=== PATIENT | female | born 1960 | race Caucasian/White ===

== ENCOUNTER 2018-04-29 16:00 | Inpatient (IN) | END 2018-05-14 11:05 | disposition home or self-care (01) | DRG 885 | DX: F25.9 Schizoaffective disorder, unspecified (principal); K50.90 Crohn's disease, unspecified, without complications; E44.0 Moderate protein-calorie malnutrition; Z68.1 Body mass index [BMI] 19.9 or less, adult; E87.1 Hypo-osmolality and hyponatremia; N13.30 Unspecified hydronephrosis; M81.0 Age-related osteoporosis without current pathological fracture; E03.9 Hypothyroidism, unspecified; D63.8 Anemia in other chronic diseases classified elsewhere; E86.0 Dehydration; E78.00 Pure hypercholesterolemia, unspecified; R74.0 Nonspecific elevation of levels of transaminase and lactic acid dehydrogenase [LDH]; K59.00 Constipation, unspecified; F32.9 Major depressive disorder, single episode, unspecified ==

== ENCOUNTER 2018-10-24 14:10 | Inpatient (IN) | payer MEDICARE ==
[~2018-10-24] VITALS: Ht 157.5 cm; Wt 62.6 kg
[~2018-10-24 14:10] MED LIST: CALC-860 PO; CLOT12CR TP; CLOZ100T PO; CYAN-51 PO; DICY10CA13 PO; DIVA250T4 PO; LEVO125T PO; OLAN2.5T3 PO
[2018-10-24 15:24] LABS: BASOPHILS # (AUTO) 0.1 K/uL (0.0-8.0); BASOPHILS % (AUTO) 1.1 % (0.0-2.0); HEMATOCRIT 27.8 % (31.2-41.9); HEMOGLOBIN 8.9 g/dL (10.9-14.3); LYMPHOCYTES # (AUTO) 1.7 K/uL (20.0-40.0); LYMPHOCYTES % (AUTO) 32.1 % (20.5-51.5); MEAN CORPUSCULAR HEMOGLOBIN 30.1 uug (24.7-32.8); MEAN CORPUSCULAR HGB CONC 32 g/dL (32.3-35.6); MEAN CORPUSCULAR VOLUME 93.6 fL (75.5-95.3); MONOCYTES # (AUTO) 1.1 K/uL (2.0-10.0); MONOCYTES % (AUTO) 20.6 % (0.0-11.0); NEUTROPHILS # (AUTO) 2.5 K/uL (1.8-8.9); NEUTROPHILS % (AUTO) 46.2 % (38.5-71.5); PLATELET COUNT (AUTO) 402 K/uL (179-408); RED BLOOD CELL COUNT(AUTO) 2.97 MIL/uL (3.63-4.92); WHITE BLOOD COUNT (AUTO) 5.3 K/uL (3.8-11.8)
[2018-10-24 15:34] LABS: CARBON DIOXIDE 29 mmol/L (21-32); CHLORIDE 102 mmol/L (98-107); CREATININE 0.4 mg/dL (0.6-1.3); GLUCOSE 75 mg/dL (74-106); POTASSIUM 5.1 mmol/L (3.5-5.1); UREA NITROGEN, BLOOD 18 mg/dL (7-18)
[2018-10-24 15:39] LABS: ALANINE AMINOTRANSFERASE 82 U/L (14-59); ALKALINE PHOSPHATASE 82 U/L (50-136); ASPARTATE AMINOTRANSFERASE 56 U/L (15-37); BILIRUBIN,DIRECT 0.1 mg/dL (0.0-0.2); BILIRUBIN,TOTAL 0.2 mg/dL (0.2-1.0); LIPASE 106 U/L (73-393); TOTAL PROTEIN, SERUM 5.5 g/dL (6.4-8.2)
[2018-10-24 15:52] LABS: *BILIRUBIN,URIN NEGATIVE (NEGATIVE); *BLOOD, URINE 1+ (NEGATIVE); *CLARITY,URINE SLIGHTLY CLOUDY (CLEAR); *COLOR,URINE LIGHT YELLOW (YELLOW); *KETONES,URINE NEGATIVE (NEGATIVE); *UROBILINOGEN,URINE 0.2 E.U./dl (NORMAL); LEUKOCYTE ESTERASE ,URINE 3+ (NEGATIVE); NITRITE, URINE NEGATIVE (NEGATIVE); UGLUCOSE NEGATIVE (NEGATIVE)
[2018-10-24 16:16] LABS: BACTERIA,URINE MODERATE /HPF (NONE SEEN); SQUAMOUS EPITHELIAL CELL,UR FEW /HPF (NONE SEEN); WBC,URINE 80-100 /HPF (0-3)
[2018-10-24 16:28] LABS: LYMPHOCYTES % (MANUAL) 31 % (20-40); MONOCYTES % (MANUAL) 13 % (2-10); NEUTROPHILS % (MANUAL) 56 % (42-75)
--- NOTE | 2018-10-24 16:38 | NUR ---
[facility] PROVIDED FOR PT PER REQUEST. PT ATE WITH GOOD APETITTE.DENEIS N/V
--- NOTE | 2018-10-24 16:57 | NUR ---
CALLED [facility] .FOR PSYCH EVAL. ETA ONE HOUR
[2018-10-24] MEDS ORDERED: CEphaleXIN 500 MG CAPSULE ONE (16:59)
[2018-10-24] MEDS ORDERED: CEphaleXIN 500 MG CAPSULE PO ONE (17:00)
--- NOTE | 2018-10-24 18:24 | NUR ---
HOSPITAL DINNER PROVIDED FOR PT. PT EATING WITH GOOD APETITE.
--- NOTE | 2018-10-24 20:37 | NUR ---
Nursing show operations supervisor contacted for update with patient room. She stated that they are in the process of moving patients out of GP to make room for this patient.
[2018-10-24] MEDS ORDERED: MAGNESIUM HYDROXIDE 30 ML LIQUID UDC PO PRN (21:00)
[2018-10-24] MEDS ORDERED: LORAZEPAM 1 MG TABLET PO PRN (21:00)
[2018-10-24] MEDS ORDERED: TEMAZEPAM 7.5 MG CAPSULE PO PRN (21:00)
--- NOTE | 2018-10-24 21:00 | NUR ---
Patient transferred to MHU in stable condition.
[2018-10-24] MEDS: ACETAMINOPHEN 325 MG TABLET PO PRN (22:59)
--- NOTE | 2018-10-24 23:31 | NUR ---
Admission Note: 57 y.o. female brought to MHU from ER via wheelchair, accompanied by ER staff. Pt admitted on a 5150 for GD under the care of Dr Mendoza and Dr Antoine. According to the 5150, Pt called 911 reporting an argument with her mother and stated she does not want to live with her mother any longer. She has always lived with her mother and takes Clozapine. Pt was angry, irritable, and had pressured speech. Pt has no reasonable plan for self care if discharged. Pt is child-like, angry, and unsafe for discharge. Upon admission to the unit, Pt is A+Ox3, VS stable, no c/o pain. Advisement and Patient rights handbook given and explained to Pt. Upon face to face evaluation, Pt is loud, yelling, needy, demanding, agitated, and labile, requires firm limits. Pt exhibits poor insight and impaired judgment. Refuses prn, states repeatedly, I'm not crazy!" Pt states she is here "because that's where my mother wants me!" Pt is angry, irritable and resistant to staff direction. Pt only answered select questions, and refused to sign restraint policy despite education provided. Skin assessment completed with licensed staff-skin c/d/i. Medical h/o Chron's disease, hypothyroidism, MDD, OP, SAD, and UTI, with NKA. Dr Mendoza and Dr Antoine notified of admission, meds reconciled, orders received. Pt belongings inventoried, contraband placed in unit locker. Refused PNA vaccination. Pt provided contact info for sister in law to be notified in the morning per pt request. Pt refused unit orientation, remains uncooperative. Pt ambulates with slow and steady gait. Q 15 minute safety checks initiated.
[2018-10-24 23:36] VITALS: BP 93/55
--- NOTE | 2018-10-25 06:31 | NUR ---
PATIENT DID NOT SLEEP LAST NIGHT; HOWEVER, SHE STAY IN HER BED AND ONLY CAME OUT OF THE ROOM A FEW TIMES ASKING FOR BLANKETS, TOILET PAPER, FOOD. PO PRNs FOR INSOMNIA AND ANXIETY, BUT SHE REFUSED. PATIENT IS REASSURED FOR HER SAFETY. WILL CONTINUE TO MONITOR.
[2018-10-25 07:30] VITALS: BP 95/61
[2018-10-25 15:57] VITALS: BP 103/60
[2018-10-25] MEDS: CLOZAPINE 100 MG TABLET PO SCH (17:31)
[2018-10-25] MEDS: DIVALPROEX 250 MG TABLET.DR PO SCH ×2 (17:32→20:24)
--- NOTE | 2018-10-25 19:20 | NUR ---
RECEIVED PT AWAKE ON BED. PT SHOWS NO SIGNS O ACUTE DISTRESS. PLEASANT WHEN APPROACH. SAFETY AND COMFORT PROVIDED. WILL CONTINUE TO MONITOR.
[2018-10-25 20:18] VITALS: BP 94/60
[2018-10-25] MEDS: OLANZAPINE 2.5 MG TABLET PO SCH (20:24)
[2018-10-25] MEDS: CEphaleXIN 500 MG CAPSULE PO SCH (20:24)
[2018-10-25] MEDS: ACETAMINOPHEN 325 MG TABLET PO PRN (20:26)
[2018-10-26] MEDS: LEVOTHYROXINE SODIUM 125 MCG TABLET PO SCH (06:02)
--- NOTE | 2018-10-26 06:53 | NUR ---
PT SLEPT 9 HOURS. PT SHOWS NO SIGNS OF ACUTE DISTRESS. SAFETY AND COMFORT PROVIDED. WILL ENDORSE ACCORDINGLY TO INCOMING NURSE FOR CONTINUITY OF CARE.
[2018-10-26 07:30] VITALS: BP 90/50
[2018-10-26] MEDS: CEphaleXIN 500 MG CAPSULE PO SCH ×2 (08:58→20:33)
[2018-10-26] MEDS: OLANZAPINE 2.5 MG TABLET PO SCH ×2 (08:58→20:33)
[2018-10-26] MEDS: DIVALPROEX 250 MG TABLET.DR PO SCH ×3 (08:58→20:33)
[2018-10-26] MEDS: CYANOCOBALAMIN 1,000 MCG TABLET PO SCH (08:59)
[2018-10-26] MEDS: CITALOPRAM 10 MG TABLET PO SCH (08:59)
[2018-10-26] MEDS: CLOZAPINE 100 MG TABLET PO SCH ×2 (08:59→17:08)
[2018-10-26] MEDS: CALCIUM CARB/VITAMIN D 600-400 MG TABLET PO SCH (08:59)
[2018-10-26] MEDS: DICYCLOMINE HCL 10 MG CAPSULE PO SCH (08:59)
--- NOTE | 2018-10-26 10:44 | NUR ---
Patient care will be endorse to MARCO ANTONIO Candelario who will continue with care plan.
[2018-10-26] MEDS ORDERED: HYDROCODONE/APAP 5-325MG TABLET PO PRN (11:45)
--- NOTE | 2018-10-26 14:17 | NUR ---
Initial Discharge Note: Patient is a 57 year old female who currently lives at home [[address] [place] [address]; ] with her 95 year old mother, Renetta. Per patient, she is unsure at this time if she would like to go home with her mom as she states she is "manipulative". Per Renetta, she wants her daughter to come home stating "She is all I have" and became tearful. The relationship between the two appears to be co-dependent. sanitation worker hosing machinery will continue to work with both patient and daughter toward a safe discharge with adequate support. sanitation worker hosing machinery will continue to collaborate with interdisciplinary team on discharge as well.
[2018-10-26 16:07] VITALS: BP 90/45
[2018-10-26] MEDS: ACETAMINOPHEN 325 MG TABLET PO PRN (17:07)
[2018-10-26 20:10] VITALS: BP 91/51
--- NOTE | 2018-10-26 21:41 | NUR ---
GPS: Rec'd pt awake walking in the hallway with her FWW. No s/s of acute distress noted. Appears anxious and unable to follow directions. Eager to receive snacks and when instructed to wait in her room, noted back in hallway asking for snack again within minutes. Attention seeking and unable to redirect. Took all due HS meds as ordered. Denies pain. All safety precautions in place. All needs met at this time. Will cont to monitor.
[2018-10-27] MEDS: LEVOTHYROXINE SODIUM 125 MCG TABLET PO SCH (06:00)
[2018-10-27 07:30] VITALS: BP 99/63
[2018-10-27] MEDS: OLANZAPINE 2.5 MG TABLET PO SCH ×2 (08:26→20:08)
[2018-10-27] MEDS: CYANOCOBALAMIN 1,000 MCG TABLET PO SCH (08:26)
[2018-10-27] MEDS: CEphaleXIN 500 MG CAPSULE PO SCH ×2 (08:26→20:08)
[2018-10-27] MEDS: DIVALPROEX 250 MG TABLET.DR PO SCH ×3 (08:26→20:08)
[2018-10-27] MEDS: MAG HYDROX/AL HYDROX/SIMETH 30 ML LIQUID UDC PO PRN ×2 (08:26→14:41)
[2018-10-27] MEDS: ACETAMINOPHEN 325 MG TABLET PO PRN ×2 (08:26→14:41)
[2018-10-27] MEDS: DICYCLOMINE HCL 10 MG CAPSULE PO SCH (08:27)
[2018-10-27] MEDS: CITALOPRAM 10 MG TABLET PO SCH (08:27)
[2018-10-27] MEDS: CALCIUM CARB/VITAMIN D 600-400 MG TABLET PO SCH (08:27)
[2018-10-27] MEDS: CLOZAPINE 100 MG TABLET PO SCH ×2 (08:27→16:05)
[2018-10-27 16:00] VITALS: BP 88/50
--- NOTE | 2018-10-27 18:27 | NUR ---
GPS : RECEIVED PATIENT AMBULATING IN THE HALLWAY WITH PATIENT HIGHLY INTRUSIVE AND NEEDY, PATIENT COMES TO NURSES STATION ALMOST EVERY 30 MINUTES PATIENT VERBALIZES THAT HER FAMILY MAKING HER SICK, PATIENT COMPLIANT WITH MEDICATION, VERBALIZES PAIN, PAIN MEDS GIVEN WILL CONTINUE MONITOR
[2018-10-27 20:38] VITALS: BP 88/50
[2018-10-28] MEDS: LEVOTHYROXINE SODIUM 125 MCG TABLET PO SCH (06:06)
[2018-10-28 07:30] VITALS: BP 95/53
[2018-10-28] MEDS: CALCIUM CARB/VITAMIN D 600-400 MG TABLET PO SCH (08:43)
[2018-10-28] MEDS: DICYCLOMINE HCL 10 MG CAPSULE PO SCH (08:43)
[2018-10-28] MEDS: DIVALPROEX 250 MG TABLET.DR PO SCH ×3 (08:44→20:21)
[2018-10-28] MEDS: ACETAMINOPHEN 325 MG TABLET PO PRN (08:44)
[2018-10-28] MEDS: CLOZAPINE 100 MG TABLET PO SCH ×2 (08:44→16:05)
[2018-10-28] MEDS: CEphaleXIN 500 MG CAPSULE PO SCH ×2 (08:44→20:20)
[2018-10-28] MEDS: CYANOCOBALAMIN 1,000 MCG TABLET PO SCH (08:44)
[2018-10-28] MEDS: OLANZAPINE 2.5 MG TABLET PO SCH ×2 (08:44→20:20)
[2018-10-28] MEDS: CITALOPRAM 10 MG TABLET PO SCH (08:44)
[2018-10-28 16:00] VITALS: BP 84/51
--- NOTE | 2018-10-28 18:26 | NUR ---
GPS : PATIENT COMPLIANT WITH MEDICTION, SET LIMITS, PATIENT TENDS TO BE VERBALLY ABUSIVE WITH STAFF, PRN MEDS GIVEN , PATIENT CALM DOWN AND ABLE TO REDIRECT, WILL CONTINUE MONITOR
[2018-10-28 20:26] VITALS: BP 90/50
[2018-10-29] MEDS: LEVOTHYROXINE SODIUM 125 MCG TABLET PO SCH (06:07)
[2018-10-29] MEDS: ACETAMINOPHEN 325 MG TABLET PO PRN (06:13)
[2018-10-29 07:30] VITALS: BP 102/64
[2018-10-29] MEDS: CEphaleXIN 500 MG CAPSULE PO SCH ×2 (08:32→20:42)
[2018-10-29] MEDS: DICYCLOMINE HCL 10 MG CAPSULE PO SCH (08:32)
[2018-10-29] MEDS: CALCIUM CARB/VITAMIN D 600-400 MG TABLET PO SCH (08:32)
[2018-10-29] MEDS: CLOZAPINE 100 MG TABLET PO SCH ×2 (08:32→16:16)
[2018-10-29] MEDS: CYANOCOBALAMIN 1,000 MCG TABLET PO SCH (08:33)
[2018-10-29] MEDS: DIVALPROEX 250 MG TABLET.DR PO SCH ×3 (08:33→20:42)
[2018-10-29] MEDS: OLANZAPINE 2.5 MG TABLET PO SCH ×2 (08:33→20:42)
[2018-10-29] MEDS: CITALOPRAM 10 MG TABLET PO SCH (08:33)
[2018-10-29 21:03] VITALS: BP 90/50
[2018-10-30] MEDS: LEVOTHYROXINE SODIUM 125 MCG TABLET PO SCH (07:06)
[2018-10-30] MEDS: ACETAMINOPHEN 325 MG TABLET PO PRN ×2 (07:08→16:01)
[2018-10-30 07:30] VITALS: BP 90/52
[2018-10-30] MEDS: CITALOPRAM 10 MG TABLET PO SCH (08:21)
[2018-10-30] MEDS: DICYCLOMINE HCL 10 MG CAPSULE PO SCH (08:22)
[2018-10-30] MEDS: OLANZAPINE 2.5 MG TABLET PO SCH ×2 (08:22→20:06)
[2018-10-30] MEDS: DIVALPROEX 250 MG TABLET.DR PO SCH ×3 (08:22→20:06)
[2018-10-30] MEDS: CLOZAPINE 100 MG TABLET PO SCH ×2 (08:22→16:00)
[2018-10-30] MEDS: CALCIUM CARB/VITAMIN D 600-400 MG TABLET PO SCH (08:22)
[2018-10-30] MEDS: CEphaleXIN 500 MG CAPSULE PO SCH ×2 (08:22→20:06)
[2018-10-30] MEDS: CYANOCOBALAMIN 1,000 MCG TABLET PO SCH (08:22)
[2018-10-30 16:00] VITALS: BP 90/49
[2018-10-30 21:07] VITALS: BP 91/53
[2018-10-31 06:42] LABS: BASOPHILS # (AUTO) 0.1 K/uL (0.0-8.0); BASOPHILS % (AUTO) 1.4 % (0.0-2.0); HEMATOCRIT 28.2 % (31.2-41.9); HEMOGLOBIN 9.3 g/dL (10.9-14.3); LYMPHOCYTES # (AUTO) 2.4 K/uL (20.0-40.0); LYMPHOCYTES % (AUTO) 37.6 % (20.5-51.5); MEAN CORPUSCULAR HEMOGLOBIN 31.5 uug (24.7-32.8); MEAN CORPUSCULAR HGB CONC 33 g/dL (32.3-35.6); MEAN CORPUSCULAR VOLUME 95.1 fL (75.5-95.3); MONOCYTES # (AUTO) 0.9 K/uL (2.0-10.0); MONOCYTES % (AUTO) 13.8 % (0.0-11.0); NEUTROPHILS % (AUTO) 47.2 % (38.5-71.5); PLATELET COUNT (AUTO) 534 K/uL (179-408); RED BLOOD CELL COUNT(AUTO) 2.97 MIL/uL (3.63-4.92); WHITE BLOOD COUNT (AUTO) 6.4 K/uL (3.8-11.8)
[2018-10-31] MEDS: LEVOTHYROXINE SODIUM 125 MCG TABLET PO SCH (06:43)
[2018-10-31] MEDS: ACETAMINOPHEN 325 MG TABLET PO PRN ×2 (06:46→19:58)
[2018-10-31 07:01] LABS: BILIRUBIN,TOTAL 0.2 mg/dL (0.2-1.0); CREATININE 0.7 mg/dL (0.6-1.3); MAGNESIUM 2.5 mg/dL (1.8-2.4); POTASSIUM 4.7 mmol/L (3.5-5.1)
[2018-10-31 08:02] VITALS: BP 87/56
[2018-10-31] MEDS: OLANZAPINE 2.5 MG TABLET PO SCH ×2 (08:40→20:57)
[2018-10-31] MEDS: CALCIUM CARB/VITAMIN D 600-400 MG TABLET PO SCH (08:41)
[2018-10-31] MEDS: DIVALPROEX 250 MG TABLET.DR PO SCH ×3 (08:41→20:57)
[2018-10-31] MEDS: CYANOCOBALAMIN 1,000 MCG TABLET PO SCH (08:41)
[2018-10-31] MEDS: DICYCLOMINE HCL 10 MG CAPSULE PO SCH (08:42)
[2018-10-31] MEDS: CITALOPRAM 10 MG TABLET PO SCH (08:42)
[2018-10-31] MEDS: CEphaleXIN 500 MG CAPSULE PO SCH ×2 (08:42→20:57)
[2018-10-31] MEDS: CLOZAPINE 100 MG TABLET PO SCH ×2 (08:43→17:20)
[2018-10-31 11:46] LABS: BAND % (MANUAL) 2 % (0-10); BASOPHILS % (MANUAL) 1 % (0-2); LYMPHOCYTES % (MANUAL) 38 % (20-40); MONOCYTES % (MANUAL) 13 % (2-10); NEUTROPHILS % (MANUAL) 46 % (42-75)
[2018-10-31 16:48] VITALS: BP 77/44
--- NOTE | 2018-10-31 19:20 | NUR ---
RECEIVED PT ON BED. PT SHOWS NO SIGNS OF ACUTE DISTRESS. PT TEND TO BE VERBALLY ABUSIVE WITH STAFF. PT NEED TO BE REDIRECTED. PT NEEDY.SAFETY AND COMFORT PROVIDED. WILL CONTINUE TO MONITOR.
[2018-10-31 20:00] VITALS: BP 92/50
[2018-11-01] MEDS: ACETAMINOPHEN 325 MG TABLET PO PRN ×2 (05:46→20:41)
--- NOTE | 2018-11-01 06:25 | NUR ---
PT SLEPT 1.30 HOURS.PT SHOWS NO SIGNS OF ACUTE DISTRESS. PRESCRIBED MEDICATION GIVEN AND PT TOLERATED IT WELL.PT IN AND OUT OF HER ROOM COMPLAINING OF THE TEMERATURE. STAFF ADDRESSED IT BUT SHE STILL COMPLAIN ON THE ROOM TEMERATURE. SAFETY AND COMFORT PROVIDED. ALL NEEDS ARE MET. WILL ENDORSE ACCORDINGLY TO INCOMING NURSE FOR CONTINUITY OF CARE.
[2018-11-01] MEDS: LEVOTHYROXINE SODIUM 125 MCG TABLET PO SCH (06:42)
[2018-11-01 07:30] VITALS: BP 90/58
[2018-11-01] MEDS: CEphaleXIN 500 MG CAPSULE PO SCH (09:09)
[2018-11-01] MEDS: CLOZAPINE 100 MG TABLET PO SCH ×2 (09:09→17:44)
[2018-11-01] MEDS: CITALOPRAM 10 MG TABLET PO SCH (09:09)
[2018-11-01] MEDS: CYANOCOBALAMIN 1,000 MCG TABLET PO SCH (09:09)
[2018-11-01] MEDS: DIVALPROEX 250 MG TABLET.DR PO SCH ×3 (09:09→20:35)
[2018-11-01] MEDS: DICYCLOMINE HCL 10 MG CAPSULE PO SCH (09:09)
[2018-11-01] MEDS: CALCIUM CARB/VITAMIN D 600-400 MG TABLET PO SCH (09:10)
[2018-11-01] MEDS: OLANZAPINE 2.5 MG TABLET PO SCH ×2 (09:10→20:36)
[2018-11-01 15:47] VITALS: BP 90/57
[2018-11-01 20:39] VITALS: BP 90/60
[2018-11-02] MEDS: LEVOTHYROXINE SODIUM 125 MCG TABLET PO SCH (07:00)
[2018-11-02 07:30] VITALS: BP 90/51
--- NOTE | 2018-11-02 08:25 | NUR ---
DC NOTE: Patient will be discharged back to her home [[address] [place] [id number]; ] and transportation will be provided by patient mother, Renetta Guzmán [[phone]] at 4:00pm. Patient is AxOx3, denies suicidal ideations, is able to plan for self-care, and is agreeable to the discharge plan. Patient currently follows-up with Dr. Alexandre, psychiatrist, [[id number] [facility] [id number], [place] [address]; ] and has a follow-up appointment scheduled for Saturday, November 24, 2018 at 3:00pm. Continuing care packet has been faxed to office. If patient is in need of psychiatric follow-up sooner, she has been provided with a referral to [facility] [[address] [place] [address]; ] where patient can walk-in for appointment Thursday thru Thursday anytime between 8:00pm-5:00pm. Patient has also been provided with a referral to the [facility] [[address], [place] [address]; ] where patient can follow-up Thursday thru Thursday from 8:00am � 5:00pm. Patient has been instructed to make an appointment as walk-ins are not welcome. Patient was agreeable. Patient has also been provided with mental health resources including [facility] [ ], Krista Chavez [ ], and the National Suicide Prevention Lifeline [ ].
--- NOTE | 2018-11-02 08:39 | NUR ---
FIREARMS REPORT: printed circuit board reworker completed and submitted a [employer] firearms report for a 5250 GD certification. A copy of report has been placed in patient chart.
[2018-11-02] MEDS: OLANZAPINE 2.5 MG TABLET PO SCH ×2 (09:09→20:09)
[2018-11-02] MEDS: DIVALPROEX 250 MG TABLET.DR PO SCH ×3 (09:09→20:09)
[2018-11-02] MEDS: DICYCLOMINE HCL 10 MG CAPSULE PO SCH (09:09)
[2018-11-02] MEDS: CITALOPRAM 10 MG TABLET PO SCH (09:09)
[2018-11-02] MEDS: CYANOCOBALAMIN 1,000 MCG TABLET PO SCH (09:09)
[2018-11-02] MEDS: CLOZAPINE 100 MG TABLET PO SCH ×2 (09:09→17:37)
[2018-11-02] MEDS: ACETAMINOPHEN 325 MG TABLET PO PRN (09:10)
[2018-11-02] MEDS: CALCIUM CARB/VITAMIN D 600-400 MG TABLET PO SCH (09:10)
[2018-11-02 15:04] VITALS: BP 92/53
--- NOTE | 2018-11-02 16:45 | NUR ---
GPS: Nursing Notes: Cancelled Discharge: Patient became agitated, verbal abusive toward staff, shouting to her mother and her mother's gericare aide teacher, screaming "She is too manipulative."... "I do not want to go with her."... "I cannot live with her..", overly disruptive by shouting, poor anger management, poor impulse control, Dr. Mendoza informed of patient's behavior by power lineworker director - [place], Dr. Epperson gave an order to cancel the discharge until further orders, Patient's mother - Renetta informed by staff and social organization professor that patient discharge was cancel due to patient's agitated and restless behavior. Also, patient stated that she does not want to live with her mother anymore, continue to monitor patient for safety, continue with treatment plan.
[2018-11-02 20:00] VITALS: BP 93/53
[2018-11-03] MEDS: LEVOTHYROXINE SODIUM 125 MCG TABLET PO SCH (06:03)
[2018-11-03 07:20] VITALS: BP 105/60
[2018-11-03] MEDS: DICYCLOMINE HCL 10 MG CAPSULE PO SCH (08:20)
[2018-11-03] MEDS: CITALOPRAM 10 MG TABLET PO SCH (08:20)
[2018-11-03] MEDS: OLANZAPINE 2.5 MG TABLET PO SCH ×2 (08:20→20:09)
[2018-11-03] MEDS: DIVALPROEX 250 MG TABLET.DR PO SCH ×3 (08:20→20:09)
[2018-11-03] MEDS: CALCIUM CARB/VITAMIN D 600-400 MG TABLET PO SCH (08:20)
[2018-11-03] MEDS: CLOZAPINE 100 MG TABLET PO SCH ×2 (08:20→16:04)
[2018-11-03] MEDS: CYANOCOBALAMIN 1,000 MCG TABLET PO SCH (08:20)
[2018-11-03] MEDS: MAG HYDROX/AL HYDROX/SIMETH 30 ML LIQUID UDC PO PRN ×2 (08:29→16:04)
[2018-11-03] MEDS: ACETAMINOPHEN 325 MG TABLET PO PRN ×3 (08:29→20:10)
--- NOTE | 2018-11-03 09:46 | NUR ---
CANCELLED DC NOTE: child and family services worker has been informed by adoption social worker, Lexus Francis, that patient discharge had been cancelled yesterday [11/02/2018] due to patient agitation and refusing to go home with her mother, Renetta Guzmán [[phone]]. See nursing note dated 11/02 @ 5213 for further details. According to Dr. Mendoza and Lexus, patient mother, Renetta [age 95], appeared confused and irritable. DC plan did not appear safe to send patient home in agitated state with 95 year old mother who appeared confused. DC will be held until more suitable plan can be arranged. child and family services worker to follow-up with patient to discuss a new plan that patient is agreeable to. Patient may need higher level of care such as a residential facility.
--- NOTE | 2018-11-03 15:16 | NUR ---
Discharge planning: shoddy mill worker met with patient at bedside to discuss discharge plan. Patient presented with flat affect and labile mood. Patient stated "I do not want to talk about this right now" and "Do I need to make a decision this minute?". Patient behavior was child-like. shoddy mill worker educated patient on the importance of making a plan for discharge. shoddy mill worker explained that discharge could be at any time and may be end of the week pending MD consultation. Again, patient wished not to discuss discharge or participate in making a plan. shoddy mill worker informed patient that a check-in would take place tomorrow and to think about her discharge. Patient agreed. As patient discharge was cancelled yesterday [11/02/2018] due to patient agitated behavior and refusal to be discharged to her mother, it may suit patient best to be placed in a intermediate facility. shoddy mill worker has sent referral packet to [facility] [ [place] [address]; ] and is awaiting response from admissions department. shoddy mill worker to follow-up with patient on possibility of SNF placement and discuss pros and cons of potential placement. Addendum: 11/03/18 at 1614 by CARIDAD CAAL Patient has been accepted to [facility] per admissions JUAN rodriguez. shoddy mill worker will follow-up with patient.
[2018-11-03 16:22] VITALS: BP 98/57
[2018-11-03 20:01] VITALS: BP 92/56
[2018-11-04] MEDS: LEVOTHYROXINE SODIUM 125 MCG TABLET PO SCH (06:26)
[2018-11-04] MEDS: ACETAMINOPHEN 325 MG TABLET PO PRN ×3 (06:30→20:34)
[2018-11-04] MEDS: MAG HYDROX/AL HYDROX/SIMETH 30 ML LIQUID UDC PO PRN ×2 (06:30→14:13)
[2018-11-04 07:30] VITALS: BP 96/61
[2018-11-04] MEDS: DIVALPROEX 250 MG TABLET.DR PO SCH ×3 (08:34→20:33)
[2018-11-04] MEDS: CLOZAPINE 100 MG TABLET PO SCH ×2 (08:34→16:35)
[2018-11-04] MEDS: CYANOCOBALAMIN 1,000 MCG TABLET PO SCH (08:35)
[2018-11-04] MEDS: DICYCLOMINE HCL 10 MG CAPSULE PO SCH (08:35)
[2018-11-04] MEDS: CITALOPRAM 10 MG TABLET PO SCH (08:35)
[2018-11-04] MEDS: CALCIUM CARB/VITAMIN D 600-400 MG TABLET PO SCH (08:35)
[2018-11-04] MEDS: OLANZAPINE 2.5 MG TABLET PO SCH ×2 (08:35→20:33)
--- NOTE | 2018-11-04 10:00 | NUR ---
Gps/Therapy Assistant- Patient talked to her mother Renetta twice this am, noted loud , argumentative , patient verbalized she does not want to be rushed. Used bathroom in the hallway, was informed can only use few minutes at a time, noted pt. shredding small piece of tissue paper on the floor, discouraged from doing so, pt. denies doing it.
--- NOTE | 2018-11-04 10:30 | NUR ---
Discharge planning: Patient scheduled to discharge today to jail placement, [facility], as she had originally refused to discharge on 11/02/2018, back to home with her 95-year old mother, Renetta Guzmán [see previous social work and nursing notes]. senior care was deemed most appropriate and safest discharge due to patient behavior and confusion posed by patient mother. Upon time of discharge today, patient refused to speak with staff and stayed in bathroom for extended periods of time. canvas worker apprentice attempted to speak with patient about discharge when she came out of bathroom and patient stated she would not leave hospital or go to jail placement, despite this being a safe discharge. canvas worker apprentice consulted with supervisor kosher dietary service, Lexus Francis, and attending psychiatrist, Dr. Mendoza, regarding situation. Interdisciplinary team was in agreement that patient could not be forced to jail placement and that home was not a safe option with 95 year old mother. Discharge was cancelled as patient unable to participate in her care and discharge plan effectively. Per Dr. Mendoza, patient may be a good candidate for LPS conservatorship. Temporary conservatorship process and paperwork will be initiated.
--- NOTE | 2018-11-04 11:00 | NUR ---
Social work note: leather worker arrived at patient bedside to discuss intent of hospital to file for temporary conservatorship. Patient observed laying in bed and presented with flat affect and congruent mood. leather worker informed patient that she would not be discharged today due to earlier circumstances [see previous social work and nursing notes]. leather worker advised patient that it was the intent of the hospital to file for mental health conservatorship of patient. leather worker explained what this meant and that an application for conservatorship would be filed with the public guardian office. Patient expressed understanding. leather worker will continue to follow-up with patient and family as needed. leather worker will inform patient when a court date has been scheduled.
[2018-11-04 16:14] VITALS: BP 92/46
--- NOTE | 2018-11-04 19:20 | NUR ---
RECEIVED PT ON BED. PT SHOWS NO SIGNS OF ACUTE DISTRESS. PLEASANT WHEN APPROACH. SAFETY AND COMFORT PROVIDED. WILL CONTINUE TO MONITOR.
[2018-11-04 20:15] VITALS: BP 98/55
--- NOTE | 2018-11-05 06:21 | NUR ---
PT SLEPT 5.15 HOURS. PT SHOWS NO SIGNS OF ACUTE DISTRESS. PT COOPERATIVE WITH CARE. SAFETY AND COMFORT PROVIDED.TYLENOL GIVEN AT 2034H. PT TOLERATED IT WELL. ALL NEEDS ARE MET. WILL ENDORSE ACCORDINGLY TO INCOMING NURSE FOR CONTINUITY OF CARE.
[2018-11-05] MEDS: LEVOTHYROXINE SODIUM 125 MCG TABLET PO SCH (06:34)
[2018-11-05] MEDS: ACETAMINOPHEN 325 MG TABLET PO PRN ×2 (06:56→14:49)
[2018-11-05] MEDS: MAG HYDROX/AL HYDROX/SIMETH 30 ML LIQUID UDC PO PRN ×2 (07:01→14:49)
[2018-11-05 07:30] VITALS: BP 101/66
[2018-11-05] MEDS: CITALOPRAM 10 MG TABLET PO SCH (08:58)
[2018-11-05] MEDS: CYANOCOBALAMIN 1,000 MCG TABLET PO SCH (08:58)
[2018-11-05] MEDS: DICYCLOMINE HCL 10 MG CAPSULE PO SCH (08:59)
[2018-11-05] MEDS: OLANZAPINE 2.5 MG TABLET PO SCH ×2 (08:59→20:42)
[2018-11-05] MEDS: CLOZAPINE 100 MG TABLET PO SCH ×2 (08:59→17:24)
[2018-11-05] MEDS: CALCIUM CARB/VITAMIN D 600-400 MG TABLET PO SCH (08:59)
[2018-11-05] MEDS: DIVALPROEX 250 MG TABLET.DR PO SCH ×3 (09:01→20:42)
--- NOTE | 2018-11-05 15:10 | NUR ---
Social work note: composite worker faxed completed "application for mental health conservatorship investigation", 5150 hold, and facesheet to the Office of the Public Guardian [phone: ; (primary); (back-up)]. Faxes were sent to both "primary" and "back-up" machines and successful fax returns were received and copies placed in patient chart. A copy of application has also been placed in patient chart. Per application, it is requested that the original and a copy of the application be mailed to: Office of the Public Guardian [[address] [place] [address], [address], [place] [address]]. Request has been fulfilled and mailed to destination. composite worker to follow-up as needed with Public Guardian Office.
[2018-11-05 16:00] VITALS: BP 90/53
--- NOTE | 2018-11-05 18:18 | NUR ---
Gps/Game Trapper- Patient complained she does not get along with her roommate, requesting to be moved to onother room, instructed patient to stay off minding her own business,pt. gets intrussive at time, discouraged patient from doing so.
[2018-11-05 20:12] VITALS: BP 90/50
[2018-11-06] MEDS: MAG HYDROX/AL HYDROX/SIMETH 30 ML LIQUID UDC PO PRN (04:56)
[2018-11-06] MEDS: LEVOTHYROXINE SODIUM 125 MCG TABLET PO SCH (06:05)
[2018-11-06] MEDS: ACETAMINOPHEN 325 MG TABLET PO PRN (06:05)
[2018-11-06 07:30] VITALS: BP 90/60
[2018-11-06] MEDS: CLOZAPINE 100 MG TABLET PO SCH ×2 (08:57→16:37)
[2018-11-06] MEDS: OLANZAPINE 2.5 MG TABLET PO SCH ×2 (08:58→20:04)
[2018-11-06] MEDS: DICYCLOMINE HCL 10 MG CAPSULE PO SCH (08:58)
[2018-11-06] MEDS: CITALOPRAM 10 MG TABLET PO SCH (08:58)
[2018-11-06] MEDS: CALCIUM CARB/VITAMIN D 600-400 MG TABLET PO SCH (08:58)
[2018-11-06] MEDS: CYANOCOBALAMIN 1,000 MCG TABLET PO SCH (08:58)
[2018-11-06] MEDS: DIVALPROEX 250 MG TABLET.DR PO SCH ×3 (09:00→20:04)
--- NOTE | 2018-11-06 15:25 | NUR ---
Gps/Textile Pin Worker- Patients" mother came in to visit , accompanied by caregiver, brought in shampoo ,hair conditioner, hair brush(brown) 1 comb (detangler), short visit .
[2018-11-06 16:00] VITALS: BP 94/57
--- NOTE | 2018-11-06 19:40 | NUR ---
Received patient awake lying in bed. Patient calm at the moment but already demanding for snacks. No complaints at the moment, will continue to monitor.
[2018-11-06 20:54] VITALS: BP 93/52
[2018-11-07] MEDS ORDERED: TEMAZEPAM 7.5 MG CAPSULE PO PRN (05:45)
[2018-11-07] MEDS: LEVOTHYROXINE SODIUM 125 MCG TABLET PO SCH (06:16)
[2018-11-07] MEDS: ACETAMINOPHEN 325 MG TABLET PO PRN ×2 (06:26→14:32)
[2018-11-07] MEDS: MAG HYDROX/AL HYDROX/SIMETH 30 ML LIQUID UDC PO PRN ×2 (06:26→14:42)
[2018-11-07 07:23] LABS: BASOPHILS # (AUTO) 0.1 K/uL (0.0-8.0); BASOPHILS % (AUTO) 1.8 % (0.0-2.0); HEMATOCRIT 30.1 % (31.2-41.9); HEMOGLOBIN 9.9 g/dL (10.9-14.3); LYMPHOCYTES % (AUTO) 44.1 % (20.5-51.5); MEAN CORPUSCULAR HEMOGLOBIN 31.4 uug (24.7-32.8); MEAN CORPUSCULAR HGB CONC 33 g/dL (32.3-35.6); MEAN CORPUSCULAR VOLUME 95.6 fL (75.5-95.3); MONOCYTES # (AUTO) 0.7 K/uL (2.0-10.0); MONOCYTES % (AUTO) 15.4 % (0.0-11.0); NEUTROPHILS # (AUTO) 1.8 K/uL (1.8-8.9); NEUTROPHILS % (AUTO) 38.7 % (38.5-71.5); PLATELET COUNT (AUTO) 414 K/uL (179-408); RED BLOOD CELL COUNT(AUTO) 3.15 MIL/uL (3.63-4.92); WHITE BLOOD COUNT (AUTO) 4.5 K/uL (3.8-11.8)
[2018-11-07 07:30] VITALS: BP 91/61
[2018-11-07] MEDS: DICYCLOMINE HCL 10 MG CAPSULE PO SCH (08:28)
[2018-11-07] MEDS: CALCIUM CARB/VITAMIN D 600-400 MG TABLET PO SCH (08:28)
[2018-11-07] MEDS: CLOZAPINE 100 MG TABLET PO SCH ×2 (08:28→17:49)
[2018-11-07] MEDS: CYANOCOBALAMIN 1,000 MCG TABLET PO SCH (08:28)
[2018-11-07] MEDS: CITALOPRAM 10 MG TABLET PO SCH (08:28)
[2018-11-07] MEDS: OLANZAPINE 2.5 MG TABLET PO SCH ×2 (08:28→20:42)
[2018-11-07 08:37] LABS: LYMPHOCYTES % (MANUAL) 44 % (20-40); MONOCYTES % (MANUAL) 15 % (2-10); NEUTROPHILS % (MANUAL) 41 % (42-75)
[2018-11-07] MEDS: DIVALPROEX 250 MG TABLET.DR PO SCH ×3 (09:39→20:42)
--- NOTE | 2018-11-07 14:45 | NUR ---
Gps/Watch Crystal Edge Grinder- Remains needy demanding behavior, had been redirectable , in and out of her group therapy.
[2018-11-07 16:00] VITALS: BP 96/58
--- NOTE | 2018-11-07 19:20 | NUR ---
RECEIVED PT AWAKE ON BED. PT IN NO ACUTE DISTRESS. PT PLEASANT WHEN APPROACHED. PT ASKING FOR SNACKS. SETTING LIMIT. SAFETY AND COMFORT PROVIDED. WILL CONTINUE TO MONITOR.
[2018-11-07 20:49] VITALS: BP 85/50
--- NOTE | 2018-11-08 06:29 | NUR ---
PT SLEPT 5.3 HOURS. PT SHOWS NO SIGNS OF ACUTE DISTRESS. PT COOPERATIVE WITH CARE. SAFETY AND COMFORT PROVIDED. WILL ENDORSE ACCORDINGLY TO INCOMING NURSE FOR CONTINUITY OF CARE.
[2018-11-08] MEDS: LEVOTHYROXINE SODIUM 125 MCG TABLET PO SCH (06:35)
[2018-11-08] MEDS: MAG HYDROX/AL HYDROX/SIMETH 30 ML LIQUID UDC PO PRN ×3 (06:47→20:14)
[2018-11-08] MEDS: ACETAMINOPHEN 325 MG TABLET PO PRN ×3 (06:47→18:15)
--- NOTE | 2018-11-08 06:51 | NUR ---
Mylanta and Tylenol given to pt. Pt tolerated it well. Pt improved pain and no upset stomach. Will endorse to incoming nurse for continuity of care.
[2018-11-08 07:30] VITALS: BP 97/55
[2018-11-08] MEDS: CALCIUM CARB/VITAMIN D 600-400 MG TABLET PO SCH (09:10)
[2018-11-08] MEDS: CITALOPRAM 10 MG TABLET PO SCH (09:10)
[2018-11-08] MEDS: DIVALPROEX 250 MG TABLET.DR PO SCH ×3 (09:10→20:13)
[2018-11-08] MEDS: CLOZAPINE 100 MG TABLET PO SCH ×2 (09:11→16:46)
[2018-11-08] MEDS: DICYCLOMINE HCL 10 MG CAPSULE PO SCH (09:11)
[2018-11-08] MEDS: CYANOCOBALAMIN 1,000 MCG TABLET PO SCH (09:11)
[2018-11-08] MEDS: OLANZAPINE 2.5 MG TABLET PO SCH ×2 (09:11→20:13)
[2018-11-08] MEDS ORDERED: ONDANSETRON ODT 4 MG TAB.RAPDIS SL PRN (11:30)
--- NOTE | 2018-11-08 16:25 | NUR ---
Social work note: ornamental ironworker called and spoke with patient 95-year-old mother, Renetta Guzmán [[phone]], regarding patient status and filing of LPS conservatorship. ornamental ironworker attempted to explain that the hospital has filed for a mental health conservatorship. ornamental ironworker had to explain the process multiple times, however, Renetta did not understand. ornamental ironworker inquired if there was any family to be able to contact to explain situation. Renetta requested that this senior writer call her nephew, Geoff [[phone]]. ornamental ironworker called Geoff and explained situation. Per Geoff, he is agreeable with filing of mental health conservatorship and states he will relay information to patient mother, Renetta. Geoff further states he will contact this senior writer weekly for updates. ornamental ironworker agreeable and will keep family updated as needed.
[2018-11-08 20:12] VITALS: BP 101/60
--- NOTE | 2018-11-09 02:00 | NUR ---
WRAPPER CASER AT NURSE'S STATION TO INFORM THAT PATIENTS BILATERAL DUPLEX VENOUS US NEEDS TO RE-ORDERED FOR AM. ADVERTISER NOTIFIED AND AWARE THAT TEST NEEDS TO RE-DONE AND RE-ORDERED, PER RADIOLOGY DEPARTMENT.
[2018-11-09] MEDS: PANTOPRAZOLE SODIUM 40 MG TABLET.DR PO SCH (06:09)
[2018-11-09] MEDS: LEVOTHYROXINE SODIUM 125 MCG TABLET PO SCH (06:09)
[2018-11-09] MEDS: ACETAMINOPHEN 325 MG TABLET PO PRN ×3 (06:17→19:55)
[2018-11-09] MEDS: MAG HYDROX/AL HYDROX/SIMETH 30 ML LIQUID UDC PO PRN ×3 (06:17→19:55)
--- NOTE | 2018-11-09 06:52 | NUR ---
NOTIFIED PSYCH CART DRIVER ABOUT PATIENTS VENOUS DOPPLER RE-ORDERED FOR AM.
[2018-11-09 07:30] VITALS: BP 101/65
[2018-11-09] MEDS: OLANZAPINE 2.5 MG TABLET PO SCH ×2 (08:28→21:07)
[2018-11-09] MEDS: DIVALPROEX 250 MG TABLET.DR PO SCH ×3 (08:28→21:08)
[2018-11-09] MEDS: DICYCLOMINE HCL 10 MG CAPSULE PO SCH (08:28)
[2018-11-09] MEDS: CITALOPRAM 10 MG TABLET PO SCH (08:28)
[2018-11-09] MEDS: CLOZAPINE 100 MG TABLET PO SCH ×2 (08:28→16:50)
[2018-11-09] MEDS: CYANOCOBALAMIN 1,000 MCG TABLET PO SCH (08:28)
[2018-11-09] MEDS: CALCIUM CARB/VITAMIN D 600-400 MG TABLET PO SCH (08:28)
--- NOTE | 2018-11-09 14:30 | NUR ---
Social work note: dam worker met with patient per her request to discuss conservatorship process and patient concerns. dam worker provided patient with active listening and supportive counseling as she spoke about her anxiety and how she feels it may be causing her stomach and back pains. Patient further stated she would like to be placed on Celexa for anxiety as it has helped her in the past. dam worker encouraged patient to discuss concern with psychiatrist and provided education on how to advocate for herself. Patient was agreeable. dam worker then explained conservatorship process with patient and discussed what the conservatorship meant for patient and her treatment. Patient was understanding and agreeable. Patient agreed that she needs help making decisions involving her care and agrees that her mother cannot make decisions for her due to to her elderly age. Patient presented good insight during conversation and remained calm and cooperative. dam worker will continue to follow-up with patient and provide brief counseling as needed.
[2018-11-09 15:50] VITALS: BP 111/57
[2018-11-09 20:15] VITALS: BP 104/66
--- NOTE | 2018-11-09 22:00 | NUR ---
received to care, pleasant upon approach. needy at times, but easy to redirect. compliant with medications and staff direction. as of 2199, she appears asleep. no distress noted.
[2018-11-10] MEDS: LEVOTHYROXINE SODIUM 125 MCG TABLET PO SCH (06:33)
[2018-11-10] MEDS: PANTOPRAZOLE SODIUM 40 MG TABLET.DR PO SCH (06:33)
[2018-11-10] MEDS: MAG HYDROX/AL HYDROX/SIMETH 30 ML LIQUID UDC PO PRN ×3 (06:54→22:08)
[2018-11-10] MEDS: ACETAMINOPHEN 325 MG TABLET PO PRN ×3 (06:54→22:08)
[2018-11-10 07:30] VITALS: BP 111/68
[2018-11-10] MEDS ORDERED: CITALOPRAM 10 MG TABLET PO SCH (09:00)
[2018-11-10] MEDS: DIVALPROEX 250 MG TABLET.DR PO SCH ×3 (09:21→20:27)
[2018-11-10] MEDS: OLANZAPINE 2.5 MG TABLET PO SCH ×2 (09:21→20:27)
[2018-11-10] MEDS: LORAZEPAM 1 MG TABLET PO PRN (09:21)
[2018-11-10] MEDS: CYANOCOBALAMIN 1,000 MCG TABLET PO SCH (09:21)
[2018-11-10] MEDS: CITALOPRAM 20 MG TABLET PO SCH (09:21)
[2018-11-10] MEDS: DICYCLOMINE HCL 10 MG CAPSULE PO SCH (09:23)
[2018-11-10] MEDS: CLOZAPINE 100 MG TABLET PO SCH ×2 (09:23→16:57)
[2018-11-10] MEDS: CALCIUM CARB/VITAMIN D 600-400 MG TABLET PO SCH (09:24)
[2018-11-10 16:00] VITALS: BP 107/62
[2018-11-10 20:26] VITALS: BP 107/62
--- NOTE | 2018-11-10 23:30 | NUR ---
received to care, pleasant upon approach. needy at times, but easy to redirect. compliant with medications and staff direction. as of 2329, she appears asleep. no distress noted.
[2018-11-11] MEDS: LEVOTHYROXINE SODIUM 125 MCG TABLET PO SCH (06:22)
[2018-11-11] MEDS: PANTOPRAZOLE SODIUM 40 MG TABLET.DR PO SCH (06:22)
[2018-11-11] MEDS: MAG HYDROX/AL HYDROX/SIMETH 30 ML LIQUID UDC PO PRN ×3 (06:41→19:55)
[2018-11-11] MEDS: ACETAMINOPHEN 325 MG TABLET PO PRN ×3 (06:41→19:55)
[2018-11-11 07:30] VITALS: BP 96/60
[2018-11-11] MEDS: OLANZAPINE 2.5 MG TABLET PO SCH ×2 (08:53→20:34)
[2018-11-11] MEDS: DICYCLOMINE HCL 10 MG CAPSULE PO SCH (08:54)
[2018-11-11] MEDS: DIVALPROEX 250 MG TABLET.DR PO SCH ×3 (08:54→20:34)
[2018-11-11] MEDS: CYANOCOBALAMIN 1,000 MCG TABLET PO SCH (08:54)
[2018-11-11] MEDS: CALCIUM CARB/VITAMIN D 600-400 MG TABLET PO SCH (08:54)
[2018-11-11] MEDS: CLOZAPINE 100 MG TABLET PO SCH ×2 (08:54→16:21)
[2018-11-11] MEDS: CITALOPRAM 20 MG TABLET PO SCH (08:55)
--- NOTE | 2018-11-11 14:04 | NUR ---
Social work note: 11/10/2018: cafeteria worker received return voicemail from Dr. Alexandre office requesting phone call back. 11/11/2018: cafeteria worker called and spoke with patient outpatient psychiatrist, Dr. Marinelli [ ] today at length regarding patient progress and recently filed temporary conservatorship [see previous notes]. cafeteria worker informed Dr. Marinelli about circumstances prompting conservatorship filing and patient psychiatric hospitalization history. Per Dr. Alexandre, patient had been stable until about 6-7 months ago after patient Clozaril dose was decreased due to medical problems/side effects related to Clozaril. Dr. Marinelli states that when the medication was decreased, that patient began to decompensate at home which led to multiple hospitalizations within a 7 month [March 2018-present time] time frame. Dr. Alexandre is in agreement that intervention with patient case needs to happen and that an LPS conservatorship in the long run could be beneficial to patient. Dr. Marinelli expressed that he has spoken with patient cousin, Geoff [[phone], and that he would possibly like to be patient conservator, rather than patient be appointed a public guardian. cafeteria worker explained that a conversation had taken place with Geoff earlier this week [see notes dated 11/08/2018] and that no indication had been made by Geoff that he would like to be conservator. cafeteria worker further explained that the mental health court is responsible for appointment of a conservator. However, social welfare administrator agreed to discuss with Geoff further the responsibilities of being a conservator and what the role entails. Dr. Alexandre was in agreement. cafeteria worker will follow-up with Dr. Marinelli as needed and with patient family.
--- NOTE | 2018-11-11 14:32 | NUR ---
Social work note: nutrition services worker notified patient of probable cause hearing scheduled for 11/12/2018 at 9:30am. Patient aware and understanding.
--- NOTE | 2018-11-11 14:38 | NUR ---
Social Work Note: Spoke with nephew, Geoff [phone], who says he is an family law attorney. He is very upset that the hospital is applying for conservatorship. He wants to attend her probable hearing tomorrow. He states that family are involved and want to assist with placement. He agrees that she should return home to her mother. This scenario writer advised him that patient is unlikely to agree to placement and this is why we were applying for conservatorship. He was asked if he wanted to take patient home today into his care as Dr Mendoza was willing to do this. 1445: Advised Geoff re :hearing tomorrow. He plans to attend.
--- NOTE | 2018-11-11 14:55 | NUR ---
Social Work Note: Error: This sports writer wrote "Geoff agrees she should return home to her mother". It should have read " feels" patient should return home. Geoff feels that patient will be alright with caregivers at home. Advised him that patient is likely to stop taking medication as soon as she leaves the hospital. Geoff's plan is to find her placement after she goes home. He is aware of her history. He will attend her probable cause hearing tomorrow.
[2018-11-11 16:00] VITALS: BP 86/49
[2018-11-11 19:59] VITALS: BP 94/61
--- NOTE | 2018-11-11 22:00 | NUR ---
received to care, pleasant upon approach. needy at times, but easy to redirect. compliant with medications and staff direction. as of 2199, she appears asleep. no distress noted. will continue to monitor closely.
[2018-11-12] MEDS: LEVOTHYROXINE SODIUM 125 MCG TABLET PO SCH (06:49)
[2018-11-12] MEDS: PANTOPRAZOLE SODIUM 40 MG TABLET.DR PO SCH (06:49)
[2018-11-12] MEDS: ACETAMINOPHEN 325 MG TABLET PO PRN (06:57)
[2018-11-12] MEDS: MAG HYDROX/AL HYDROX/SIMETH 30 ML LIQUID UDC PO PRN ×2 (06:57→13:22)
--- NOTE | 2018-11-12 08:35 | NUR ---
PT NOTED TO BE HIGHLY INTRUSIVE, MANIC, AND DEMANDING. PERSEVERATING ON FOOD AND CLOTHING AT THIS TIME. REQUIRES EXTENSIVE REDIRECTION DUE TO PT BEING QUITE REPETITIVE, INVASIVE, AND EXCESSIVELY PRESENT AT THE NURSING STATION WITH OTHER ARBITRARY REQUESTS. ARGUMENTATIVE AND ANXIOUS AT THIS TIME. NURSE TO ADMINISTER ATIVAN ORDERED.
[2018-11-12] MEDS: LORAZEPAM 1 MG TABLET PO PRN (08:53)
[2018-11-12] MEDS: OLANZAPINE 2.5 MG TABLET PO SCH ×2 (08:53→20:37)
[2018-11-12] MEDS: DIVALPROEX 250 MG TABLET.DR PO SCH ×3 (08:53→20:36)
[2018-11-12] MEDS: CITALOPRAM 20 MG TABLET PO SCH (08:53)
[2018-11-12] MEDS: CYANOCOBALAMIN 1,000 MCG TABLET PO SCH (08:53)
[2018-11-12] MEDS: DICYCLOMINE HCL 10 MG CAPSULE PO SCH (08:54)
[2018-11-12] MEDS: CLOZAPINE 100 MG TABLET PO SCH ×2 (08:54→17:47)
[2018-11-12] MEDS: CALCIUM CARB/VITAMIN D 600-400 MG TABLET PO SCH (08:55)
[2018-11-12 16:00] VITALS: BP 89/56
[2018-11-12 19:53] VITALS: BP 91/52
[2018-11-12 20:30] VITALS: BP 102/63
--- NOTE | 2018-11-13 05:53 | NUR ---
GPS: Remain pleasant . needy at times, but easy to redirect. slept 8 hrs through the night. resting in bed comfortably. no distress noted.
[2018-11-13] MEDS: LEVOTHYROXINE SODIUM 125 MCG TABLET PO SCH (06:13)
[2018-11-13] MEDS: PANTOPRAZOLE SODIUM 40 MG TABLET.DR PO SCH (06:13)
[2018-11-13] MEDS: MAG HYDROX/AL HYDROX/SIMETH 30 ML LIQUID UDC PO PRN ×3 (06:19→21:08)
[2018-11-13] MEDS: ACETAMINOPHEN 325 MG TABLET PO PRN ×3 (06:19→21:08)
--- NOTE | 2018-11-13 06:27 | NUR ---
GPS: Patient c/o abdominal pain and back pain. Tylenol 650 mg po given for back pain and Mylanta 30 ml po given for abdominal pain per patient requested.
[2018-11-13 07:30] VITALS: BP 125/71
[2018-11-13] MEDS: CYANOCOBALAMIN 1,000 MCG TABLET PO SCH (08:42)
[2018-11-13] MEDS: OLANZAPINE 2.5 MG TABLET PO SCH ×2 (08:42→20:01)
[2018-11-13] MEDS: DIVALPROEX 250 MG TABLET.DR PO SCH ×3 (08:43→20:01)
[2018-11-13] MEDS: DICYCLOMINE HCL 10 MG CAPSULE PO SCH (08:43)
[2018-11-13] MEDS: CLOZAPINE 100 MG TABLET PO SCH ×2 (08:43→17:29)
[2018-11-13] MEDS: CALCIUM CARB/VITAMIN D 600-400 MG TABLET PO SCH (08:43)
[2018-11-13] MEDS: CITALOPRAM 20 MG TABLET PO SCH (08:50)
[2018-11-13 21:06] VITALS: BP 98/60
--- NOTE | 2018-11-14 05:58 | NUR ---
GPS: Remain calm and cooperative . needy at times, but easy to redirect. slept 7 hrs through the night. resting in bed comfortably. no distress noted.
[2018-11-14] MEDS: LEVOTHYROXINE SODIUM 125 MCG TABLET PO SCH (06:15)
[2018-11-14] MEDS: PANTOPRAZOLE SODIUM 40 MG TABLET.DR PO SCH (06:15)
[2018-11-14 07:30] VITALS: BP 102/68
[2018-11-14 08:11] LABS: HEMATOCRIT 30.4 % (31.2-41.9); HEMOGLOBIN 10.1 g/dL (10.9-14.3); LYMPHOCYTES # (AUTO) 1.7 K/uL (20.0-40.0); LYMPHOCYTES % (AUTO) 40.8 % (20.5-51.5); MEAN CORPUSCULAR HEMOGLOBIN 32.1 uug (24.7-32.8); MEAN CORPUSCULAR HGB CONC 33 g/dL (32.3-35.6); MEAN CORPUSCULAR VOLUME 96.2 fL (75.5-95.3); MONOCYTES # (AUTO) 0.9 K/uL (2.0-10.0); MONOCYTES % (AUTO) 22.2 % (0.0-11.0); NEUTROPHILS # (AUTO) 1.5 K/uL (1.8-8.9); RED BLOOD CELL COUNT(AUTO) 3.16 MIL/uL (3.63-4.92); WHITE BLOOD COUNT (AUTO) 4.1 K/uL (3.8-11.8)
[2018-11-14] MEDS: CYANOCOBALAMIN 1,000 MCG TABLET PO SCH (08:27)
[2018-11-14] MEDS: CALCIUM CARB/VITAMIN D 600-400 MG TABLET PO SCH (08:27)
[2018-11-14] MEDS: OLANZAPINE 2.5 MG TABLET PO SCH ×2 (08:27→20:05)
[2018-11-14] MEDS: DIVALPROEX 250 MG TABLET.DR PO SCH ×3 (08:27→20:06)
[2018-11-14] MEDS: CITALOPRAM 20 MG TABLET PO SCH (08:28)
[2018-11-14] MEDS: DICYCLOMINE HCL 10 MG CAPSULE PO SCH (08:28)
[2018-11-14] MEDS: CLOZAPINE 100 MG TABLET PO SCH ×2 (08:28→17:00)
[2018-11-14] MEDS: ACETAMINOPHEN 325 MG TABLET PO PRN ×2 (10:06→17:01)
[2018-11-14] MEDS: MAG HYDROX/AL HYDROX/SIMETH 30 ML LIQUID UDC PO PRN ×2 (10:06→17:01)
[2018-11-14 11:14] LABS: PLATELET COUNT (AUTO) 285 K/uL (179-408)
[2018-11-14 13:47] LABS: BAND % (MANUAL) 1 % (0-10); LYMPHOCYTES % (MANUAL) 41 % (20-40); MONOCYTES % (MANUAL) 21 % (2-10); NEUTROPHILS % (MANUAL) 37 % (42-75)
[2018-11-14 16:00] VITALS: BP 93/51
[2018-11-14 19:52] VITALS: BP 100/59
--- NOTE | 2018-11-15 06:03 | NUR ---
GPS: Remain calm and cooperative . needy at times, but easy to redirect. slept 9 hrs through the night. resting in bed comfortably. no distress noted. no agitation noted at this time.
[2018-11-15] MEDS: PANTOPRAZOLE SODIUM 40 MG TABLET.DR PO SCH (06:10)
[2018-11-15] MEDS: LEVOTHYROXINE SODIUM 125 MCG TABLET PO SCH (06:11)
[2018-11-15 07:56] VITALS: BP 104/61
[2018-11-15] MEDS: CYANOCOBALAMIN 1,000 MCG TABLET PO SCH (08:22)
[2018-11-15] MEDS: DIVALPROEX 250 MG TABLET.DR PO SCH ×3 (08:23→20:04)
[2018-11-15] MEDS: OLANZAPINE 2.5 MG TABLET PO SCH ×2 (08:23→20:04)
[2018-11-15] MEDS: CLOZAPINE 100 MG TABLET PO SCH ×2 (08:23→16:23)
[2018-11-15] MEDS: MAG HYDROX/AL HYDROX/SIMETH 30 ML LIQUID UDC PO PRN ×2 (08:23→19:49)
[2018-11-15] MEDS: DICYCLOMINE HCL 10 MG CAPSULE PO SCH (08:23)
[2018-11-15] MEDS: CITALOPRAM 20 MG TABLET PO SCH (08:23)
[2018-11-15] MEDS: CALCIUM CARB/VITAMIN D 600-400 MG TABLET PO SCH (08:23)
[2018-11-15] MEDS: ACETAMINOPHEN 325 MG TABLET PO PRN ×2 (08:23→19:49)
--- NOTE | 2018-11-15 12:50 | NUR ---
Social work note: printed circuit board reworker called and spoke with patient coordinator front desk, Miladys, at Office of the Public Guardian [[phone]] regarding status of patient temporary conservatorship. Per Miladys, patient case is under investigation by deputy public conservator, Brenna [[phone]]. printed circuit board reworker called and spoke with Brenna regarding patient case. Per Brenna, he has just received case on 11/11/2018 and is investigating. Brenna states he will come to visit patient next week. Per Brenna, the case is in the process of being assigned a court date and states he will follow-up with this ad writer when date is scheduled. printed circuit board reworker to follow-up as needed.
[2018-11-15 15:52] VITALS: BP 97/57
[2018-11-15 20:33] VITALS: BP 99/59
--- NOTE | 2018-11-15 22:00 | NUR ---
received to care, pleasant, but guarded, upon approach. needy at times. needs frequent redirection. compliant with medications, but refused to have her weekly weight done. as of 0, she appears asleep. no distress noted. will continue to monitor closely.
--- NOTE | 2018-11-16 06:00 | NUR ---
slept 6.0 hours total
[2018-11-16] MEDS: ACETAMINOPHEN 325 MG TABLET PO PRN ×3 (06:06→19:55)
[2018-11-16] MEDS: LEVOTHYROXINE SODIUM 125 MCG TABLET PO SCH (06:06)
[2018-11-16] MEDS: PANTOPRAZOLE SODIUM 40 MG TABLET.DR PO SCH (06:06)
[2018-11-16] MEDS: MAG HYDROX/AL HYDROX/SIMETH 30 ML LIQUID UDC PO PRN ×3 (06:06→19:55)
[2018-11-16 07:30] VITALS: BP 93/67
[2018-11-16] MEDS: CLOZAPINE 100 MG TABLET PO SCH ×2 (08:31→16:06)
[2018-11-16] MEDS: DICYCLOMINE HCL 10 MG CAPSULE PO SCH (08:31)
[2018-11-16] MEDS: CITALOPRAM 20 MG TABLET PO SCH (08:31)
[2018-11-16] MEDS: CALCIUM CARB/VITAMIN D 600-400 MG TABLET PO SCH (08:31)
[2018-11-16] MEDS: DIVALPROEX 250 MG TABLET.DR PO SCH ×3 (08:31→21:03)
[2018-11-16] MEDS: CYANOCOBALAMIN 1,000 MCG TABLET PO SCH (08:31)
[2018-11-16] MEDS: OLANZAPINE 2.5 MG TABLET PO SCH ×2 (08:31→21:03)
[2018-11-16 15:13] VITALS: BP 96/50
[2018-11-16 20:25] VITALS: BP 90/52
[2018-11-16 21:02] VITALS: BP 102/60
[2018-11-17] MEDS: LEVOTHYROXINE SODIUM 125 MCG TABLET PO SCH (06:17)
[2018-11-17] MEDS: ACETAMINOPHEN 325 MG TABLET PO PRN ×3 (06:17→20:03)
[2018-11-17] MEDS: PANTOPRAZOLE SODIUM 40 MG TABLET.DR PO SCH (06:17)
[2018-11-17] MEDS: MAG HYDROX/AL HYDROX/SIMETH 30 ML LIQUID UDC PO PRN ×3 (07:29→20:04)
[2018-11-17 07:30] VITALS: BP 104/68
[2018-11-17] MEDS: DIVALPROEX 250 MG TABLET.DR PO SCH ×3 (08:38→20:03)
[2018-11-17] MEDS: CITALOPRAM 20 MG TABLET PO SCH (08:38)
[2018-11-17] MEDS: OLANZAPINE 2.5 MG TABLET PO SCH ×2 (08:38→20:03)
[2018-11-17] MEDS: CYANOCOBALAMIN 1,000 MCG TABLET PO SCH (08:38)
[2018-11-17] MEDS: DICYCLOMINE HCL 10 MG CAPSULE PO SCH (08:39)
[2018-11-17] MEDS: CLOZAPINE 100 MG TABLET PO SCH ×2 (08:39→16:09)
[2018-11-17] MEDS: CALCIUM CARB/VITAMIN D 600-400 MG TABLET PO SCH (08:39)
--- NOTE | 2018-11-17 13:08 | NUR ---
Pt.in room eating breakfast ,cooperative , compl. with medication, denies any pain @ time. Addendum: 11/17/18 at 1309 by JUDIE AGUILAR RN [id number]
--- NOTE | 2018-11-17 18:00 | NUR ---
Pt.cooperative,eating dinner.
[2018-11-17 20:00] VITALS: BP 104/62
--- NOTE | 2018-11-18 06:00 | NUR ---
slept 2.5 hours. assisted with am care, and shower.
[2018-11-18] MEDS: LEVOTHYROXINE SODIUM 125 MCG TABLET PO SCH (06:46)
[2018-11-18] MEDS: ACETAMINOPHEN 325 MG TABLET PO PRN (06:46)
[2018-11-18] MEDS: MAG HYDROX/AL HYDROX/SIMETH 30 ML LIQUID UDC PO PRN ×2 (06:46→16:47)
[2018-11-18] MEDS: PANTOPRAZOLE SODIUM 40 MG TABLET.DR PO SCH (07:00)
[2018-11-18 07:30] VITALS: BP 93/56
[2018-11-18] MEDS: CALCIUM CARB/VITAMIN D 600-400 MG TABLET PO SCH (09:06)
[2018-11-18] MEDS: DIVALPROEX 250 MG TABLET.DR PO SCH ×3 (09:06→20:31)
[2018-11-18] MEDS: CYANOCOBALAMIN 1,000 MCG TABLET PO SCH (09:06)
[2018-11-18] MEDS: CITALOPRAM 20 MG TABLET PO SCH (09:06)
[2018-11-18] MEDS: OLANZAPINE 2.5 MG TABLET PO SCH ×2 (09:06→20:31)
[2018-11-18] MEDS: CLOZAPINE 100 MG TABLET PO SCH ×2 (09:07→16:37)
[2018-11-18] MEDS: DICYCLOMINE HCL 10 MG CAPSULE PO SCH (09:07)
[2018-11-18 16:00] VITALS: BP 101/57
--- NOTE | 2018-11-18 18:26 | NUR ---
Patient no behavioral problem noted. medication given with good effect.
[2018-11-18 20:00] VITALS: BP 125/65
--- NOTE | 2018-11-19 06:06 | NUR ---
GPS: Remain calm and cooperative . needy at times, but easy to redirect. slept 7 hrs through the night. Refused Protonix 40 mg po am dose stated hurt my stomach. resting in bed comfortably. no distress noted. no agitation noted at this time.
[2018-11-19] MEDS: LEVOTHYROXINE SODIUM 125 MCG TABLET PO SCH (06:10)
[2018-11-19] MEDS: PANTOPRAZOLE SODIUM 40 MG TABLET.DR PO SCH (06:10)
[2018-11-19] MEDS: MAG HYDROX/AL HYDROX/SIMETH 30 ML LIQUID UDC PO PRN (06:55)
[2018-11-19] MEDS: ACETAMINOPHEN 325 MG TABLET PO PRN ×2 (06:55→22:13)
--- NOTE | 2018-11-19 07:42 | NUR ---
patient is in asleep. no acute distress noted at this time
[2018-11-19 08:00] VITALS: BP 103/65
[2018-11-19] MEDS: CYANOCOBALAMIN 1,000 MCG TABLET PO SCH (08:06)
[2018-11-19] MEDS: DICYCLOMINE HCL 10 MG CAPSULE PO SCH (08:06)
[2018-11-19] MEDS: OLANZAPINE 2.5 MG TABLET PO SCH ×2 (08:07→20:34)
[2018-11-19] MEDS: CITALOPRAM 20 MG TABLET PO SCH (08:07)
[2018-11-19] MEDS: DIVALPROEX 250 MG TABLET.DR PO SCH ×3 (08:08→20:34)
[2018-11-19] MEDS: CLOZAPINE 100 MG TABLET PO SCH ×2 (08:08→16:35)
[2018-11-19] MEDS: CALCIUM CARB/VITAMIN D 600-400 MG TABLET PO SCH (08:08)
[2018-11-19 16:00] VITALS: BP 108/67
--- NOTE | 2018-11-19 18:17 | NUR ---
PATIENT IS ALERT, ORIENTED X3, VERBALLY RESPONSIVE, NO SOB, STILL NOTED WITH EPISODES OF YELLING, LABILE MOOD, BIPOLAR, BUT MANAGABLE, AMBULATORY, COMPLIANT WITH MEDICATIONS AND TREATMENT PLANS. CONTINUE TO MONITOR FOR SAFETY.
[2018-11-19 20:52] VITALS: BP 116/56
[2018-11-20] MEDS: MAG HYDROX/AL HYDROX/SIMETH 30 ML LIQUID UDC PO PRN (06:44)
[2018-11-20] MEDS: LEVOTHYROXINE SODIUM 125 MCG TABLET PO SCH (06:44)
[2018-11-20] MEDS: ACETAMINOPHEN 325 MG TABLET PO PRN ×2 (06:48→13:52)
[2018-11-20] MEDS: PANTOPRAZOLE SODIUM 40 MG TABLET.DR PO SCH (06:50)
[2018-11-20 07:30] VITALS: BP 130/60
[2018-11-20] MEDS: CLOZAPINE 100 MG TABLET PO SCH ×2 (08:09→16:35)
[2018-11-20] MEDS: DIVALPROEX 250 MG TABLET.DR PO SCH ×3 (08:09→20:17)
[2018-11-20] MEDS: CALCIUM CARB/VITAMIN D 600-400 MG TABLET PO SCH (08:09)
[2018-11-20] MEDS: CYANOCOBALAMIN 1,000 MCG TABLET PO SCH (08:09)
[2018-11-20] MEDS: OLANZAPINE 2.5 MG TABLET PO SCH (08:09)
[2018-11-20] MEDS: CITALOPRAM 20 MG TABLET PO SCH (08:09)
[2018-11-20] MEDS: DICYCLOMINE HCL 10 MG CAPSULE PO SCH (08:09)
[2018-11-20 15:40] VITALS: BP 104/66
[2018-11-20 16:27] LABS: *BILIRUBIN,URIN NEGATIVE (NEGATIVE); *CLARITY,URINE SLIGHTLY CLOUDY (CLEAR); *COLOR,URINE YELLOW (YELLOW); *KETONES,URINE NEGATIVE (NEGATIVE); *UROBILINOGEN,URINE 0.2 E.U./dl (NORMAL); LEUKOCYTE ESTERASE ,URINE NEGATIVE (NEGATIVE); NITRITE, URINE NEGATIVE (NEGATIVE); UGLUCOSE NEGATIVE (NEGATIVE)
[2018-11-20 16:28] LABS: *BLOOD, URINE TRACE (NEGATIVE)
[2018-11-20 16:31] LABS: RBC,URINE 0-3 /HPF (0-3)
[2018-11-20 16:32] LABS: BACTERIA,URINE NONE SEEN /HPF (NONE SEEN); SQUAMOUS EPITHELIAL CELL,UR FEW /HPF (NONE SEEN); WBC,URINE 0-3 /HPF (0-3)
[2018-11-20 19:57] VITALS: BP 111/94
[2018-11-20] MEDS: OLANZAPINE 5 MG TABLET PO SCH (20:16)
[2018-11-20] MEDS ORDERED: OLANZAPINE 2.5 MG TABLET PO SCH (21:00)
[2018-11-21] MEDS: PANTOPRAZOLE SODIUM 40 MG TABLET.DR PO SCH ×2 (07:00→07:42)
[2018-11-21 07:30] VITALS: BP 131/71
[2018-11-21 07:38] LABS: BASOPHILS # (AUTO) 0.1 K/uL (0.0-8.0); BASOPHILS % (AUTO) 1.2 % (0.0-2.0); HEMATOCRIT 30.7 % (31.2-41.9); HEMOGLOBIN 10.4 g/dL (10.9-14.3); LYMPHOCYTES # (AUTO) 1.7 K/uL (20.0-40.0); LYMPHOCYTES % (AUTO) 39.4 % (20.5-51.5); MEAN CORPUSCULAR HEMOGLOBIN 32.3 uug (24.7-32.8); MEAN CORPUSCULAR HGB CONC 34 g/dL (32.3-35.6); MEAN CORPUSCULAR VOLUME 95.8 fL (75.5-95.3); MONOCYTES # (AUTO) 0.9 K/uL (2.0-10.0); MONOCYTES % (AUTO) 20.1 % (0.0-11.0); NEUTROPHILS # (AUTO) 1.7 K/uL (1.8-8.9); NEUTROPHILS % (AUTO) 39.3 % (38.5-71.5); PLATELET COUNT (AUTO) 326 K/uL (179-408); RED BLOOD CELL COUNT(AUTO) 3.21 MIL/uL (3.63-4.92); WHITE BLOOD COUNT (AUTO) 4.3 K/uL (3.8-11.8)
[2018-11-21] MEDS: LEVOTHYROXINE SODIUM 125 MCG TABLET PO SCH (07:42)
[2018-11-21] MEDS: ACETAMINOPHEN 325 MG TABLET PO PRN ×3 (07:42→21:44)
--- NOTE | 2018-11-21 07:42 | NUR ---
med x 1 for complaint of headache.
--- NOTE | 2018-11-21 07:51 | NUR ---
awake, upset unable to sleep well last night.encourage to nap later, verbalized understanding. med given as requested. ambulatory in room and hallway
[2018-11-21] MEDS: DIVALPROEX 250 MG TABLET.DR PO SCH ×3 (08:44→21:45)
[2018-11-21] MEDS: MAG HYDROX/AL HYDROX/SIMETH 30 ML LIQUID UDC PO PRN ×3 (08:44→21:45)
[2018-11-21] MEDS: CYANOCOBALAMIN 1,000 MCG TABLET PO SCH (08:44)
[2018-11-21] MEDS: DICYCLOMINE HCL 10 MG CAPSULE PO SCH (08:44)
[2018-11-21] MEDS: OLANZAPINE 5 MG TABLET PO SCH ×2 (08:44→21:45)
[2018-11-21] MEDS: CITALOPRAM 20 MG TABLET PO SCH (08:44)
[2018-11-21] MEDS: CALCIUM CARB/VITAMIN D 600-400 MG TABLET PO SCH (08:45)
[2018-11-21] MEDS: CLOZAPINE 100 MG TABLET PO SCH ×2 (08:45→16:53)
--- NOTE | 2018-11-21 09:00 | NUR ---
relief from headache verbalized
[2018-11-21 09:15] LABS: EOSINOPHILS % (MANUAL) 1 % (0-8); LYMPHOCYTES % (MANUAL) 30 % (20-40); MONOCYTES % (MANUAL) 19 % (2-10); NEUTROPHILS % (MANUAL) 40 % (42-75)
--- NOTE | 2018-11-21 14:57 | NUR ---
complaint of abdominal and indigestion, med as requested
[2018-11-21 16:00] VITALS: BP 100/43
--- NOTE | 2018-11-21 16:11 | NUR ---
caregiver and mother in to visit. little discussion with the daughter and mother about brought in new clothes. resolved easily.
[2018-11-21 20:35] VITALS: BP 105/68
[2018-11-22] MEDS: LEVOTHYROXINE SODIUM 125 MCG TABLET PO SCH (06:37)
[2018-11-22] MEDS: MAG HYDROX/AL HYDROX/SIMETH 30 ML LIQUID UDC PO PRN ×3 (06:54→20:51)
[2018-11-22] MEDS: ACETAMINOPHEN 325 MG TABLET PO PRN ×3 (06:54→20:51)
[2018-11-22] MEDS: PANTOPRAZOLE SODIUM 40 MG TABLET.DR PO SCH (06:57)
[2018-11-22 07:30] VITALS: BP 112/71
[2018-11-22] MEDS: DICYCLOMINE HCL 10 MG CAPSULE PO SCH (08:41)
[2018-11-22] MEDS: CLOZAPINE 100 MG TABLET PO SCH ×2 (08:41→16:47)
[2018-11-22] MEDS: CITALOPRAM 20 MG TABLET PO SCH (08:41)
[2018-11-22] MEDS: OLANZAPINE 5 MG TABLET PO SCH ×2 (08:41→20:52)
[2018-11-22] MEDS: CYANOCOBALAMIN 1,000 MCG TABLET PO SCH (08:41)
[2018-11-22] MEDS: CALCIUM CARB/VITAMIN D 600-400 MG TABLET PO SCH (08:41)
[2018-11-22] MEDS: DIVALPROEX 250 MG TABLET.DR PO SCH ×3 (08:41→20:52)
--- NOTE | 2018-11-22 14:58 | NUR ---
Social work note: boat worker called and left a voicemail for deputy public conservator, rBenna [[phone]], at [employer] regarding patient T-Con status. boat worker awaiting call back.
[2018-11-22 16:00] VITALS: BP 95/56
[2018-11-22 20:38] VITALS: BP 98/61
[2018-11-23] MEDS: LEVOTHYROXINE SODIUM 125 MCG TABLET PO SCH (07:04)
[2018-11-23] MEDS: PANTOPRAZOLE SODIUM 40 MG TABLET.DR PO SCH (07:04)
[2018-11-23 07:09] LABS: BILIRUBIN,TOTAL 0.3 mg/dL (0.2-1.0); CREATININE 0.8 mg/dL (0.6-1.3); MAGNESIUM 2.3 mg/dL (1.8-2.4); PHOSPHOROUS 6.6 mg/dL (2.5-4.9); POTASSIUM 4.6 mmol/L (3.5-5.1); TOTAL PROTEIN, SERUM 7.3 g/dL (6.4-8.2)
[2018-11-23 07:30] VITALS: BP 93/61
[2018-11-23] MEDS: CITALOPRAM 20 MG TABLET PO SCH (08:06)
[2018-11-23] MEDS: DIVALPROEX 250 MG TABLET.DR PO SCH ×3 (08:06→20:06)
[2018-11-23] MEDS: CYANOCOBALAMIN 1,000 MCG TABLET PO SCH (08:06)
[2018-11-23] MEDS: OLANZAPINE 5 MG TABLET PO SCH ×2 (08:06→20:06)
[2018-11-23] MEDS: MAG HYDROX/AL HYDROX/SIMETH 30 ML LIQUID UDC PO PRN ×3 (08:06→20:14)
[2018-11-23] MEDS: ACETAMINOPHEN 325 MG TABLET PO PRN ×3 (08:06→20:14)
[2018-11-23] MEDS: CALCIUM CARB/VITAMIN D 600-400 MG TABLET PO SCH (08:08)
[2018-11-23] MEDS: DICYCLOMINE HCL 10 MG CAPSULE PO SCH (08:08)
[2018-11-23] MEDS: CLOZAPINE 100 MG TABLET PO SCH ×2 (08:08→17:53)
[2018-11-23 13:00] VITALS: BP 91/66
[2018-11-23 20:45] VITALS: BP 105/68
--- NOTE | 2018-11-23 22:00 | NUR ---
eceived to care, pleasant upon approach. appears less needy, ad easier to redirect. compliant with medications and staff direction. as of 2199, she appears asleep. no distress noted. will continue to monitor closely.
[2018-11-24] MEDS: ACETAMINOPHEN 325 MG TABLET PO PRN ×3 (06:25→20:08)
[2018-11-24] MEDS: LEVOTHYROXINE SODIUM 125 MCG TABLET PO SCH (06:25)
[2018-11-24] MEDS: PANTOPRAZOLE SODIUM 40 MG TABLET.DR PO SCH (06:28)
[2018-11-24] MEDS: MAG HYDROX/AL HYDROX/SIMETH 30 ML LIQUID UDC PO PRN ×3 (06:30→20:08)
[2018-11-24 07:30] VITALS: BP 126/79
[2018-11-24] MEDS: CALCIUM CARB/VITAMIN D 600-400 MG TABLET PO SCH (08:41)
[2018-11-24] MEDS: DICYCLOMINE HCL 10 MG CAPSULE PO SCH (08:41)
[2018-11-24] MEDS: DIVALPROEX 250 MG TABLET.DR PO SCH ×3 (08:42→20:08)
[2018-11-24] MEDS: CLOZAPINE 100 MG TABLET PO SCH ×2 (08:42→17:31)
[2018-11-24] MEDS: CYANOCOBALAMIN 1,000 MCG TABLET PO SCH (08:42)
[2018-11-24] MEDS: OLANZAPINE 5 MG TABLET PO SCH ×2 (08:42→20:08)
[2018-11-24] MEDS: CITALOPRAM 20 MG TABLET PO SCH (08:42)
--- NOTE | 2018-11-24 12:21 | NUR ---
Social work note: Patient met with deputy public conservator, Brenna [[phone]], regarding patient T-Con status. Once interview was completed, this underwriter mortgage loan met with Brenna. Per Brenna, patient has a scheduled court appearance on December 01. bed worker has informed patient and patient cousin, Geoff [[phone]], of court date. Dr. Mendoza has been notified. bed worker to follow-up as necessary. Addendum: 11/24/18 [address] is scheduled for 8:30am
--- NOTE | 2018-11-24 14:00 | NUR ---
PT REQUESTED FOR TYLENOL FOR C/O OF HER MUSCLES IN BOTH ARMS. MEDICATED.
[2018-11-24] MEDS: TRAMADOL HCL 50 MG TABLET PO PRN (15:55)
[2018-11-24 16:00] VITALS: BP 99/63
--- NOTE | 2018-11-24 16:30 | NUR ---
PT STATED THAT TYLENOL DID NOT RELIEVE MUCH OF HER MUSCLE PAIN AND REQUESTED TO GET THE ULTRAM. MEDICATED AND PT ABLE TO REST.
--- NOTE | 2018-11-24 17:30 | NUR ---
UNEVENTFUL DAY, PT IS VERY COOPERATIVE. MOOD IS CALM, PT JOINED THE GROUP AVTIVITY AND VERY COOPERATIVE.
--- NOTE | 2018-11-24 18:00 | NUR ---
SEEN AND EXAMINED BY DR THOMPSON, NO NEW ORDERS.
[2018-11-24 20:25] VITALS: BP 102/66
--- NOTE | 2018-11-24 22:00 | NUR ---
received to care, pleasant upon approach. appears less needy. compliant with medications and staff direction. as of 2199, she appears asleep. no distress noted. will continue to monitor closely.
[2018-11-25] MEDS: PANTOPRAZOLE SODIUM 40 MG TABLET.DR PO SCH (06:48)
[2018-11-25] MEDS: LEVOTHYROXINE SODIUM 125 MCG TABLET PO SCH (06:48)
[2018-11-25] MEDS: MAG HYDROX/AL HYDROX/SIMETH 30 ML LIQUID UDC PO PRN ×3 (06:48→20:36)
[2018-11-25] MEDS: TRAMADOL HCL 50 MG TABLET PO PRN ×2 (06:58→16:33)
[2018-11-25 07:30] VITALS: BP 118/73
[2018-11-25] MEDS: DIVALPROEX 250 MG TABLET.DR PO SCH ×3 (08:45→20:35)
[2018-11-25] MEDS: CLOZAPINE 100 MG TABLET PO SCH ×2 (08:45→16:56)
[2018-11-25] MEDS: CALCIUM CARB/VITAMIN D 600-400 MG TABLET PO SCH (08:45)
[2018-11-25] MEDS: CYANOCOBALAMIN 1,000 MCG TABLET PO SCH (08:45)
[2018-11-25] MEDS: DICYCLOMINE HCL 10 MG CAPSULE PO SCH (08:45)
[2018-11-25] MEDS: CITALOPRAM 20 MG TABLET PO SCH (08:45)
[2018-11-25] MEDS: OLANZAPINE 5 MG TABLET PO SCH ×2 (08:45→20:35)
[2018-11-25] MEDS: ACETAMINOPHEN 325 MG TABLET PO PRN ×2 (13:29→20:36)
[2018-11-25 16:00] VITALS: BP 90/60
[2018-11-25 19:53] VITALS: BP 108/68
--- NOTE | 2018-11-25 20:00 | NUR ---
Received patient awake and alert, oriented x3. Patient is pleasant and cooperative. All personal items are within reach at all times. All safety and fall precautions are in place. Will continue to monitor.
--- NOTE | 2018-11-26 04:45 | NUR ---
Patient requesting ultram for pain at 7/10 for bilateral arms. Nurse provided prescribed analgesic, as ordered, and as requested by patient.
[2018-11-26] MEDS: TRAMADOL HCL 50 MG TABLET PO PRN ×3 (04:51→21:29)
--- NOTE | 2018-11-26 05:14 | NUR ---
Patient slept throughout night until 0445 when requested pain medication for 7/10 pain in bilateral arms. Patient took medication and went back to sleep in bed. Patient spent a small amount of time with new admit in bed 145C. Safety and fall precaution measures remain in place. Personal items remain within reach.
[2018-11-26] MEDS: LEVOTHYROXINE SODIUM 125 MCG TABLET PO SCH (06:38)
[2018-11-26] MEDS: MAG HYDROX/AL HYDROX/SIMETH 30 ML LIQUID UDC PO PRN ×3 (06:45→21:28)
[2018-11-26] MEDS: ACETAMINOPHEN 325 MG TABLET PO PRN ×2 (06:47→14:14)
[2018-11-26] MEDS: PANTOPRAZOLE SODIUM 40 MG TABLET.DR PO SCH (07:00)
--- NOTE | 2018-11-26 07:03 | NUR ---
Patient refused prescribed protonix. Gave risks/benefits 3 times, patient still refused.
[2018-11-26] MEDS: CALCIUM CARB/VITAMIN D 600-400 MG TABLET PO SCH (08:28)
[2018-11-26] MEDS: CYANOCOBALAMIN 1,000 MCG TABLET PO SCH (08:28)
[2018-11-26] MEDS: CITALOPRAM 20 MG TABLET PO SCH (08:28)
[2018-11-26] MEDS: DIVALPROEX 250 MG TABLET.DR PO SCH ×3 (08:28→21:22)
[2018-11-26] MEDS: CLOZAPINE 100 MG TABLET PO SCH ×2 (08:28→16:46)
[2018-11-26] MEDS: DICYCLOMINE HCL 10 MG CAPSULE PO SCH (08:29)
[2018-11-26] MEDS: OLANZAPINE 5 MG TABLET PO SCH ×2 (08:29→21:22)
[2018-11-26 09:08] VITALS: BP 97/61
--- NOTE | 2018-11-26 16:15 | NUR ---
Group note: Pt attended a group session on 11/26/18 at 2:30PM discussing their support system while they are in the hospital and after they are discharged. S: Pt stated, �I know I have my mother but I need to practice boundaries with her because sometimes she is just very over barring, and I don�t like that.� O: Pt was present during the group session and was engaged. Pt appeared to be in a eurythmic mood and presented with a calm affect. Pt maintained appropriate eye contact and had an appropriate tone of voice. A: Pt expressed understanding the value of having a support system and the importance of practicing healthy boundaries with family members. Pt has a positive outlook for her future and contributes to group in a positive way. P: Pt will continue milieu treatment and medication stabilization.
[2018-11-26 16:30] VITALS: BP 107/64
[2018-11-26 19:50] VITALS: BP 101/62
--- NOTE | 2018-11-26 21:30 | NUR ---
Pt complaining of BL arm pain and requested pain medication. Nurse provided prescribed Ultram for relief of pain, as ordered and requested.
--- NOTE | 2018-11-26 22:00 | NUR ---
Pt received to care, sleeping in bed with lights off in room. Complaint of BL arm pain was addressed with prescribed Ultram with patient experiencing relief, as evidenced by sleeping comfortably in bed. Pt has been compliant with prescribed medication and cooperative with care up to this point. Will continue to monitor closely.
[2018-11-27] MEDS: LEVOTHYROXINE SODIUM 125 MCG TABLET PO SCH (06:36)
[2018-11-27] MEDS: MAG HYDROX/AL HYDROX/SIMETH 30 ML LIQUID UDC PO PRN ×3 (06:37→20:07)
[2018-11-27] MEDS: ACETAMINOPHEN 325 MG TABLET PO PRN (06:37)
[2018-11-27] MEDS: PANTOPRAZOLE SODIUM 40 MG TABLET.DR PO SCH (06:45)
--- NOTE | 2018-11-27 06:45 | NUR ---
Patient slept the entire night without any interruptions in sleep. Was compliant with care and medications with the exception of protonix. Patient showered in the morning and is currently awake and 'exercising' in hallway.
[2018-11-27] MEDS: CYANOCOBALAMIN 1,000 MCG TABLET PO SCH (08:30)
[2018-11-27] MEDS: CLOZAPINE 100 MG TABLET PO SCH ×2 (08:30→16:24)
[2018-11-27] MEDS: CALCIUM CARB/VITAMIN D 600-400 MG TABLET PO SCH (08:30)
[2018-11-27] MEDS: OLANZAPINE 5 MG TABLET PO SCH ×2 (08:30→20:07)
[2018-11-27] MEDS: CITALOPRAM 20 MG TABLET PO SCH (08:30)
[2018-11-27] MEDS: DIVALPROEX 250 MG TABLET.DR PO SCH ×3 (08:30→20:08)
[2018-11-27] MEDS: DICYCLOMINE HCL 10 MG CAPSULE PO SCH (08:30)
[2018-11-27 08:35] VITALS: BP 135/68
[2018-11-27] MEDS: TRAMADOL HCL 50 MG TABLET PO PRN ×2 (12:03→20:07)
[2018-11-27 19:44] VITALS: BP 111/72
[2018-11-28] MEDS: LEVOTHYROXINE SODIUM 125 MCG TABLET PO SCH (06:04)
[2018-11-28] MEDS: TRAMADOL HCL 50 MG TABLET PO PRN ×3 (06:04→20:51)
[2018-11-28] MEDS: MAG HYDROX/AL HYDROX/SIMETH 30 ML LIQUID UDC PO PRN ×3 (06:04→20:50)
[2018-11-28] MEDS: PANTOPRAZOLE SODIUM 40 MG TABLET.DR PO SCH (06:05)
[2018-11-28 06:43] LABS: BASOPHILS % (AUTO) 0.8 % (0.0-2.0); HEMATOCRIT 30.8 % (31.2-41.9); HEMOGLOBIN 10.2 g/dL (10.9-14.3); LYMPHOCYTES # (AUTO) 2.1 K/uL (20.0-40.0); LYMPHOCYTES % (AUTO) 35.3 % (20.5-51.5); MEAN CORPUSCULAR HEMOGLOBIN 31.6 uug (24.7-32.8); MEAN CORPUSCULAR HGB CONC 33 g/dL (32.3-35.6); MEAN CORPUSCULAR VOLUME 95.2 fL (75.5-95.3); MONOCYTES # (AUTO) 1.2 K/uL (2.0-10.0); MONOCYTES % (AUTO) 20.7 % (0.0-11.0); NEUTROPHILS # (AUTO) 2.5 K/uL (1.8-8.9); NEUTROPHILS % (AUTO) 43.2 % (38.5-71.5); PLATELET COUNT (AUTO) 410 K/uL (179-408); RED BLOOD CELL COUNT(AUTO) 3.24 MIL/uL (3.63-4.92); WHITE BLOOD COUNT (AUTO) 5.8 K/uL (3.8-11.8)
[2018-11-28 07:07] LABS: BILIRUBIN,TOTAL 0.2 mg/dL (0.2-1.0); CREATININE 0.7 mg/dL (0.6-1.3); POTASSIUM 4.6 mmol/L (3.5-5.1); TOTAL PROTEIN, SERUM 6.6 g/dL (6.4-8.2)
[2018-11-28 07:25] LABS: LYMPHOCYTES % (MANUAL) 38 % (20-40); MONOCYTES % (MANUAL) 22 % (2-10); NEUTROPHILS % (MANUAL) 40 % (42-75)
[2018-11-28 07:30] VITALS: BP 128/79
[2018-11-28] MEDS: DICYCLOMINE HCL 10 MG CAPSULE PO SCH (08:14)
[2018-11-28] MEDS: CLOZAPINE 100 MG TABLET PO SCH ×2 (08:14→16:41)
[2018-11-28] MEDS: OLANZAPINE 5 MG TABLET PO SCH ×2 (08:14→20:50)
[2018-11-28] MEDS: CALCIUM CARB/VITAMIN D 600-400 MG TABLET PO SCH (08:14)
[2018-11-28] MEDS: CYANOCOBALAMIN 1,000 MCG TABLET PO SCH (08:14)
[2018-11-28] MEDS: DIVALPROEX 250 MG TABLET.DR PO SCH ×3 (08:15→20:51)
[2018-11-28] MEDS: CITALOPRAM 20 MG TABLET PO SCH (08:15)
[2018-11-28] MEDS ORDERED: FUROSEMIDE 40 MG TABLET PO ONE ×2 (10:00→20:00)
[2018-11-28] MEDS: CEphaleXIN 500 MG CAPSULE PO SCH ×2 (10:18→16:41)
[2018-11-28 16:00] VITALS: BP 99/63
[2018-11-28 20:11] VITALS: BP 95/59
[2018-11-28 21:02] VITALS: BP 109/75
[2018-11-29] MEDS: MAG HYDROX/AL HYDROX/SIMETH 30 ML LIQUID UDC PO PRN ×2 (06:08→17:33)
[2018-11-29] MEDS: LEVOTHYROXINE SODIUM 125 MCG TABLET PO SCH (06:08)
[2018-11-29] MEDS: TRAMADOL HCL 50 MG TABLET PO PRN ×2 (06:08→20:42)
[2018-11-29] MEDS: PANTOPRAZOLE SODIUM 40 MG TABLET.DR PO SCH (06:09)
[2018-11-29 06:48] LABS: BASOPHILS % (AUTO) 0.4 % (0.0-2.0); HEMATOCRIT 31.6 % (31.2-41.9); HEMOGLOBIN 10.7 g/dL (10.9-14.3); LYMPHOCYTES # (AUTO) 2.1 K/uL (20.0-40.0); LYMPHOCYTES % (AUTO) 32.8 % (20.5-51.5); MEAN CORPUSCULAR HGB CONC 34 g/dL (32.3-35.6); MONOCYTES # (AUTO) 1.2 K/uL (2.0-10.0); MONOCYTES % (AUTO) 19.5 % (0.0-11.0); NEUTROPHILS % (AUTO) 47.3 % (38.5-71.5); PLATELET COUNT (AUTO) 392 K/uL (179-408); RED BLOOD CELL COUNT(AUTO) 3.33 MIL/uL (3.63-4.92); WHITE BLOOD COUNT (AUTO) 6.3 K/uL (3.8-11.8)
[2018-11-29 06:58] LABS: CREATININE 0.8 mg/dL (0.6-1.3); POTASSIUM 4.6 mmol/L (3.5-5.1)
[2018-11-29 07:30] VITALS: BP 104/70
[2018-11-29 07:31] LABS: LYMPHOCYTES % (MANUAL) 28 % (20-40); MONOCYTES % (MANUAL) 21 % (2-10); NEUTROPHILS % (MANUAL) 51 % (42-75)
[2018-11-29] MEDS ORDERED: FUROSEMIDE 40 MG TABLET PO ONE (07:45)
[2018-11-29] MEDS: CALCIUM CARB/VITAMIN D 600-400 MG TABLET PO SCH (08:24)
[2018-11-29] MEDS: CITALOPRAM 20 MG TABLET PO SCH (08:24)
[2018-11-29] MEDS: DIVALPROEX 250 MG TABLET.DR PO SCH ×3 (08:24→20:41)
[2018-11-29] MEDS: OLANZAPINE 5 MG TABLET PO SCH ×2 (08:24→20:42)
[2018-11-29] MEDS: CLOZAPINE 100 MG TABLET PO SCH ×2 (08:25→16:36)
[2018-11-29] MEDS: CEphaleXIN 500 MG CAPSULE PO SCH ×2 (08:25→16:36)
[2018-11-29] MEDS: DICYCLOMINE HCL 10 MG CAPSULE PO SCH (08:25)
[2018-11-29] MEDS: CYANOCOBALAMIN 1,000 MCG TABLET PO SCH (08:25)
[2018-11-29 15:21] VITALS: BP 85/57
[2018-11-29 18:06] VITALS: BP 91/59
[2018-11-30] MEDS: LEVOTHYROXINE SODIUM 125 MCG TABLET PO SCH (05:55)
[2018-11-30] MEDS: TRAMADOL HCL 50 MG TABLET PO PRN ×2 (05:56→15:12)
[2018-11-30] MEDS: PANTOPRAZOLE SODIUM 40 MG TABLET.DR PO SCH (06:09)
--- NOTE | 2018-11-30 06:18 | NUR ---
PT REFUSED TO TAKE PROTONIX ATER STAFF OFFERRED HER.SHE STATED,"PROTONIX MADE ME HAVING DIARRHEA".
--- NOTE | 2018-11-30 06:23 | NUR ---
CORRECTION: AFTER NOT ATER.
--- NOTE | 2018-11-30 06:54 | NUR ---
PT SLEPT FOR 8.0 HRS STRAIGHT.SHE WOKE UP THEN STARTED TO DO EXERCISE BY WALKING BACK & FORTH IN THE HALLWAY.PAIN PILL WAS GIVEN FOR LOWER BACK PAIN.
[2018-11-30] MEDS: MAG HYDROX/AL HYDROX/SIMETH 30 ML LIQUID UDC PO PRN ×3 (06:58→20:37)
[2018-11-30 07:30] VITALS: BP 107/69
[2018-11-30] MEDS: OLANZAPINE 5 MG TABLET PO SCH ×2 (08:23→20:37)
[2018-11-30] MEDS: DICYCLOMINE HCL 10 MG CAPSULE PO SCH (08:23)
[2018-11-30] MEDS: CLOZAPINE 100 MG TABLET PO SCH ×2 (08:23→17:06)
[2018-11-30] MEDS: CALCIUM CARB/VITAMIN D 600-400 MG TABLET PO SCH (08:23)
[2018-11-30] MEDS: CYANOCOBALAMIN 1,000 MCG TABLET PO SCH (08:24)
[2018-11-30] MEDS: CITALOPRAM 20 MG TABLET PO SCH (08:24)
[2018-11-30] MEDS: DIVALPROEX 250 MG TABLET.DR PO SCH ×3 (08:24→20:37)
[2018-11-30] MEDS: CEphaleXIN 500 MG CAPSULE PO SCH ×2 (08:24→17:06)
--- NOTE | 2018-11-30 08:35 | NUR ---
GPS: CALLED AND SPOKE WITH CHAIR MAKER- SU FOR PATIENTS APPOINTMENT WITH COURT TOMORROW MORNING FOR ESCORT , SPOKE WITH DIETARY TO ARRANGE EARLY BREAKFAST AND PACKED LUNCH BOTH FOR ESCORT AND FOR THE PATIENT, SPOKE WITH PALMIRA OF DIETARY, ARRANGED TRANSPORTATION WITH TRIP NUMBER [id number],
[2018-11-30 15:36] VITALS: BP 108/60
[2018-11-30 19:44] VITALS: BP 95/56
--- NOTE | 2018-11-30 21:15 | NUR ---
1+ BUE AND 2+ BLE NOTED WITH Pt C/O OF MODERATE PAIN TO HER (R) ARM. EPIC CALLED AND TORIE OKEEFE PAGED, AWAITING CALL BACK. FEET ELEVATED WHILE IN BED.
[2018-11-30] MEDS ORDERED: FUROSEMIDE 40 MG TABLET PO ONE (21:50)
[2018-11-30 21:52] VITALS: BP 100/63
[2018-11-30] MEDS ORDERED: FUROSEMIDE 20 MG TABLET ONE (22:11)
--- NOTE | 2018-11-30 22:35 | NUR ---
PO lasix 40 mg given, per orders from [facility]. will continue to monitor closely.
[2018-12-01] MEDS: MAG HYDROX/AL HYDROX/SIMETH 30 ML LIQUID UDC PO PRN ×2 (05:55→12:28)
[2018-12-01] MEDS: LEVOTHYROXINE SODIUM 125 MCG TABLET PO SCH (05:56)
[2018-12-01] MEDS: PANTOPRAZOLE SODIUM 40 MG TABLET.DR PO SCH (05:56)
[2018-12-01] MEDS: TRAMADOL HCL 50 MG TABLET PO PRN ×2 (05:56→12:36)
--- NOTE | 2018-12-01 12:00 | NUR ---
PT IS BACK ON THE UNIT FROM COURT. PT IS BEING DISCHARGED WITH HER CONSERVATOR
[2018-12-01] MEDS: CYANOCOBALAMIN 1,000 MCG TABLET PO SCH (12:19)
[2018-12-01] MEDS: OLANZAPINE 5 MG TABLET PO SCH (12:19)
[2018-12-01] MEDS: CITALOPRAM 20 MG TABLET PO SCH (12:19)
[2018-12-01] MEDS: DIVALPROEX 250 MG TABLET.DR PO SCH (12:19)
[2018-12-01] MEDS: CLOZAPINE 100 MG TABLET PO SCH (12:19)
[2018-12-01] MEDS: CEphaleXIN 500 MG CAPSULE PO SCH (12:19)
[2018-12-01] MEDS: DICYCLOMINE HCL 10 MG CAPSULE PO SCH (12:20)
[2018-12-01] MEDS: CALCIUM CARB/VITAMIN D 600-400 MG TABLET PO SCH (12:20)
[2018-12-01] MEDS: ACETAMINOPHEN 325 MG TABLET PO PRN ×2 (12:28→12:36)
--- NOTE | 2018-12-01 13:10 | NUR ---
Discharge Note: Patient will be discharged back home with her mother Renetta Guzmán [[address] [place] [address]; ] via private transportation by 3:00pm. Patient�s cousin, Geoff La ([phone]) is the newly appointed conservator of this patient. A copy of the order has been placed in patient�s chart. Geoff is currently declining placement despite treatment team and manager social suggestion that patient should be placed in a structured environment. Geoff stated patient will be receiving caregiving services at home to ensure medication compliance. Per Geoff, [facility] will be conducting an assessment tomorrow, December 02, 2018. Upon request, patient�s conservator was provided with referral to [facility] [[phone]] � a housing referral agency with assisted living and independent living placement options for patient should the need arise. Geoff has agreed to provide transportation and is aware and agreeable with discharge plans. Patient is alert and oriented x4, denies SI/HI, and is aware and agreeable with discharge plans. Patient will continue to follow-up with her Psychiatrist, Dr. Prince Gant [[phone]] on an outpatient basis. Patient was also provided with a referral to [facility] where she can walk in Thursday from 8:00-5:00pm should she need psychiatric intervention. Patient was also provided with outpatient mental health resources to [facility] , Krista Chavez , and the National Suicide Prevention Lifeline .
--- NOTE | 2018-12-01 16:35 | NUR ---
Patient is being discharged home with her mother Renetta Guzmán and the caregiver. Pt's conservator Geoff Crawford is signing paperwork. Discharge instructions are given to the patient, conservator and caregiver. VS are stable, no distress. All belongings returned and forms signed.
== END 2018-12-01 15:00 | disposition home or self-care (01) | DRG 885 ==
LOC: ER 14:11 → GPS 20:52
PROVIDERS: ADMIT Psychiatry & Neurology Psychiatry; ATTEND Nurse Practitioner Acute Care
DX: F20.0 Paranoid schizophrenia (principal); K50.90 Crohn's disease, unspecified, without complications; N39.0 Urinary tract infection, site not specified; L03.115 Cellulitis of right lower limb; E44.0 Moderate protein-calorie malnutrition; J98.11 Atelectasis; B96.20 Unspecified Escherichia coli [E. coli] as the cause of diseases classified elsewhere; Z16.29 Resistance to other single specified antibiotic; M81.0 Age-related osteoporosis without current pathological fracture; E03.9 Hypothyroidism, unspecified; Z79.890 Hormone replacement therapy; D63.8 Anemia in other chronic diseases classified elsewhere; G89.29 Other chronic pain; N28.1 Cyst of kidney, acquired; M95.4 Acquired deformity of chest and rib; S22.41XS Multiple fractures of ribs, right side, sequela; X58.XXXS Exposure to other specified factors, sequela; Z68.25 Body mass index [BMI] 25.0-25.9, adult; K59.00 Constipation, unspecified
CPT/HCPCS: 36415; 70030-TC; 71045; 74018; 76700; 80164; 83690; 83735; 84100; 84443; 85025; 87077; 87086; 93005; 93307; A4663; J3490

== ENCOUNTER 2021-05-20 20:49 | Inpatient (IN) | payer MEDICARE ==
[~2021-05-20] VITALS: Ht 162.6 cm; Wt 65.0 kg
[~2021-05-20 20:49] MED LIST changes: +CALC-1210 PO; -CALC-860 PO; -CLOT12CR TP; -CLOZ100T PO; -DIVA250T4 PO; -OLAN2.5T3 PO
--- NOTE | 2021-05-20 21:36 | NUR ---
NO BEDS AVAILABLE IN THE ER. PLACED IN HALLWAY.
[2021-05-20 21:59] LABS: HEMATOCRIT 29.2 % (31.2-41.9); MEAN CORPUSCULAR HEMOGLOBIN 30.6 uug (24.7-32.8); MEAN CORPUSCULAR VOLUME 90.8 fL (75.5-95.3); PLATELET COUNT (AUTO) 394 K/uL (179-408)
[2021-05-20 22:02] LABS: NEUTROPHILS % (MANUAL) 0 % (42-75)
[2021-05-20 22:14] LABS: ETHANOL < 3 MG/DL (0-0)
[2021-05-20 22:27] LABS: THYROID STIMULATING HORMONE 40.716 mIU/mL (0.358-3.740)
[2021-05-20 22:47] LABS: CARBON DIOXIDE 27 mmol/L (21-32); CHLORIDE 100 mmol/L (98-107); CREATININE 0.7 mg/dL (0.6-1.3); GLUCOSE 76 mg/dL (74-106); POTASSIUM 4.1 mmol/L (3.5-5.1); UREA NITROGEN, BLOOD 39 mg/dL (7-18)
[2021-05-20 22:53] LABS: ALANINE AMINOTRANSFERASE 65 U/L (14-59); ALKALINE PHOSPHATASE 95 U/L (50-136); ASPARTATE AMINOTRANSFERASE 51 U/L (15-37); BILIRUBIN,DIRECT 0.1 mg/dL (0.0-0.2); BILIRUBIN,TOTAL 0.2 mg/dL (0.2-1.0); TOTAL PROTEIN, SERUM 7.2 g/dL (6.4-8.2)
--- NOTE | 2021-05-20 23:30 | NUR ---
DEVORAH FROM PET TEAM HERE TO EVAL PATIENT.
[2021-05-20] MEDS ORDERED: OLANZAPINE 5 MG TABLET PO ONE (23:45)
[2021-05-21 00:05] LABS: ACETAMINOPHEN < 2.0 ug/mL (10-30)
[2021-05-21] MEDS ORDERED: OLANZAPINE 5 MG TABLET ONE (00:05)
[2021-05-21] MEDS ORDERED: TOPI25TA PO (00:36)
[2021-05-21] MEDS ORDERED: HALDOL PO (00:36)
[2021-05-21] MEDS ORDERED: RISP0.5T5 PO (00:36)
--- NOTE | 2021-05-21 01:13 | NUR ---
transfered to U via wheelchair.
--- NOTE | 2021-05-21 01:15 | NUR ---
Admission note: 60 year old female admitted to [facility] on a 5150 hold for GD. Per hold Pt is here because she informed the clinician that she is hearing voices commanding her to do things and she is unable to provide for her own food and clothing. She entered the unit via wheelchair. Upon face to face assessment she reflects what is written on the hold. Pt hold will end on 05/23/2021 0006h. Advisement was given. Pt under the care of Dr. Sorto and Albert MCADAMS. Pt belongings were inventoried and secured. She was introduce to unit rules and room. Skin assessment done. FPC assessment done. Safety and comfort provided. Will continue to monitor.
[2021-05-21 01:30] VITALS: BP 124/73
[2021-05-21] MEDS ORDERED: MAG HYDROX/AL HYDROX/SIMETH 30 ML LIQUID UDC PO PRN (01:30)
[2021-05-21] MEDS ORDERED: TEMAZEPAM 7.5 MG CAPSULE PO PRN (01:30)
[2021-05-21] MEDS ORDERED: MAGNESIUM HYDROXIDE 30 ML LIQUID UDC PO PRN (01:30)
[2021-05-21] MEDS ORDERED: LORAZEPAM 0.5 MG TABLET PO PRN (01:30)
[2021-05-21] MEDS ORDERED: ACETAMINOPHEN 325 MG TABLET PO PRN (01:30)
[2021-05-21] MEDS ORDERED: BLOOD SUGAR DIAGNOSTIC 1 EACH STRIP VI ONE (05:15)
--- NOTE | 2021-05-21 05:25 | NUR ---
Pt refused to let her blood sugar check. Will continue to monitor.
--- NOTE | 2021-05-21 06:11 | NUR ---
Pt in no acute distress. Pt needs reorientation. Pt refused to sign her admission papers and blood sugar checked. Prescribed medication given and pt tolerated it well. Safety and comfort provided. All needs are met. . Pt stable. Will endorse to incoming nurse for continuity of care.
--- NOTE | 2021-05-21 06:39 | NUR ---
Called pt mother to notify that her daughter is here on our unit. Cristina the caregiver will forward the message and told staff radiographer that both of them know that pt is here. Cristina state to call around 10 -11 am. Will endorse to incoming nurse.
--- NOTE | 2021-05-21 09:35 | NUR ---
GPS: PT RECEIVED IN HER ROOM. PER 5150, PT HEARING VOICES COMMANDING HER TO DO SOMETHING. PARANOID. REFUSED VITAL SIGNS THIS AM AND SLAMMED THE DOOR REAL HARD. PT WITH 1 HR SLEEP SINCE LAST NIGHT. PT SCREAMING, BANGING HER HEAD ON THE DOOR. VERBALLY ABUSIVE TO STAFF. PT TALKING TO SELF, STATING " I DON'T CARE ABOUT ANY BODY, GOOD BYNora WALTERS (CAREGIVER OF HER MOM)!". PATIENT STATING " LET'S SEE WHO IS BRAVE IN HERE, I WILL BE OUT OF HERE IF I DO THIS!". REPORTED TO DR JACKSON ORDERED ZYPREXA 10MG IM ONE TIME.
[2021-05-21] MEDS ORDERED: OLANZAPINE 10 MG VIAL IM ONE (09:45)
[2021-05-21] MEDS ORDERED: LEVOTHYROXINE SODIUM 125 MCG TABLET PO ONE (12:00)
[2021-05-21] MEDS: DIVALPROEX SPRINKLE 125 MG CAP.SPRINK PO SCH ×2 (14:26→18:12)
[2021-05-21] MEDS: CALCIUM CARB/VITAMIN D 600-400 MG TABLET PO SCH (14:49)
--- NOTE | 2021-05-21 15:57 | NUR ---
MICAELA Initial Discharge Plan Pt currently resides at [address] [place] [address]. Pt lives with her mother, Renetta . Per pt's mother (DPOA) and (LPS), pt will be returning home to her. Per pt's mother, their caregiver, Yesica ([phone]) will be able to provide transportation upon discharge. Pt, her mother and the enterprise systems administrator are aware and agreeable with the discharge plan. MICAELA will continue to work with pt, family and MD to ensure a safe and proper discharge plan.
--- NOTE | 2021-05-21 16:10 | NUR ---
Firearms Report: [employer] Special [employer] Teacher completed and submitted a [employer] firearms report for 5150 grave disability certifications. A copy of report has been placed in patient chart.
--- NOTE | 2021-05-21 18:51 | NUR ---
Patient has been yelling and screaming in AM unable to be redirected . Called to [facility]DS for orders to help her quiet down , ZYPRea 10mg given as ordered in luoq good effect after one half hour. Pt then sitting quiet on bedside with no management problems. Pt has been c/o abdominal discomfort with poor oral intake, milk given as requested. no peer interaction noted, remains isolative and no c/o swuicide or self harm, continue to monitor for safety.
[2021-05-21] MEDS ORDERED: CLOZAPINE 100 MG TABLET PO SCH (21:00)
[2021-05-22] MEDS: LEVOTHYROXINE SODIUM 175 MCG TABLET PO SCH ×2 (06:16→09:48)
[2021-05-22] MEDS ORDERED: LEVOTHYROXINE SODIUM 50 MCG TABLET PO SCH (07:00)
[2021-05-22 09:15] LABS: BILIRUBIN,TOTAL 0.5 mg/dL (0.2-1.0); CREATININE 0.8 mg/dL (0.6-1.3); POTASSIUM 3.7 mmol/L (3.5-5.1); TOTAL PROTEIN, SERUM 7.8 g/dL (6.4-8.2)
[2021-05-22] MEDS: DIVALPROEX SPRINKLE 125 MG CAP.SPRINK PO SCH (09:48)
[2021-05-22] MEDS: CLOZAPINE 25 MG TABLET PO SCH (09:49)
[2021-05-22] MEDS: CALCIUM CARB/VITAMIN D 600-400 MG TABLET PO SCH (09:51)
[2021-05-22] MEDS ORDERED: OLANZAPINE 10 MG VIAL IM ONE (12:00)
[2021-05-22 16:00] VITALS: BP 114/69
[2021-05-22 20:00] VITALS: BP 126/79
[2021-05-22] MEDS ORDERED: CLOZAPINE 100 MG TABLET PO SCH (21:00)
--- NOTE | 2021-05-22 21:00 | NUR ---
Received patient in the hallway. she is noted restless, pacing the hallway. Mood is irritable, affect is blunted. she is noted easily irritable. she denied SI/HI/VH/AH. poor insight and judgment is noted as to the reason for his admission to MHU. she stated, "I am here because my stomach is bad". reality checks was done. she requires multiple redirections. she was given PO fluids and snacks. v/s stable. she is reassured for her safety. safety and fall precaution are in place. will continue to monitor.
[2021-05-23 07:30] VITALS: BP 109/71
[2021-05-23] MEDS: CLOZAPINE 25 MG TABLET PO SCH (09:10)
[2021-05-23] MEDS: CALCIUM CARB/VITAMIN D 600-400 MG TABLET PO SCH (09:10)
[2021-05-23 16:27] VITALS: BP 148/71
--- NOTE | 2021-05-23 17:00 | NUR ---
Gps/Auto Adjudication Specialist- Agitated, yelling/screaming on the phone, discouraged from disrupting the unit with her loud voice, patient started to yell louder, more that other patient starting to get anxious, patient was hitting the table with the palm of her hand and threw phone at the staff. Dr Sorto was called, orders received. Zyprexa 10 mg was administered, IM to her left deltoid as she requested. Continue to monitor behavior
[2021-05-23] MEDS ORDERED: OLANZAPINE 10 MG VIAL IM ONE (17:30)
--- NOTE | 2021-05-23 18:55 | NUR ---
Gps/Wool Hat Finisher- Remains loud , in the dinning room, disruptive,, when tries to redirect patient, she gets argumentative, and continue to yell at the staff. [place] patient banging the table, when tried to discouraged patient from doing so, stated " because i want you to give me another shot"
[2021-05-23] MEDS ORDERED: CLOZAPINE 100 MG TABLET PO SCH (21:00)
--- NOTE | 2021-05-23 21:00 | NUR ---
Patient noted hyperverbal, flight of ideas, easily irritable, grandiose delusional thinking, patient believes that she owns this place and no one is supposed to tell her what to do. she is hard to redirect. she is able to comply with her medication regiment. she refused V/S. she was given PO fluids and snacks. she is reassured for her safety. safety and fall precautions in place. will continue to monitor.
[2021-05-24] MEDS: LEVOTHYROXINE SODIUM 175 MCG TABLET PO SCH (06:57)
[2021-05-24 07:30] VITALS: BP 120/83
[2021-05-24] MEDS: CLOZAPINE 25 MG TABLET PO SCH (08:54)
[2021-05-24] MEDS: CALCIUM CARB/VITAMIN D 600-400 MG TABLET PO SCH (08:57)
[2021-05-24 10:45] LABS: HEMATOCRIT 31.7 % (31.2-41.9); MEAN CORPUSCULAR HEMOGLOBIN 31.1 uug (24.7-32.8); MEAN CORPUSCULAR VOLUME 90.7 fL (75.5-95.3); PLATELET COUNT (AUTO) 445 K/uL (179-408)
[2021-05-24 10:53] LABS: BILIRUBIN,TOTAL 0.5 mg/dL (0.2-1.0); CREATININE 0.9 mg/dL (0.6-1.3); POTASSIUM 4.4 mmol/L (3.5-5.1); TOTAL PROTEIN, SERUM 7.4 g/dL (6.4-8.2)
[2021-05-24 16:22] VITALS: BP 137/71
[2021-05-24] MEDS: risperiDONE 1 MG TABLET PO SCH (17:17)
--- NOTE | 2021-05-24 17:17 | NUR ---
Gps/Platform Man- Hesitant to take her risperidone this pm. explained to patient reason for the medications , claimed she'll take the medicine stated" i 'm warning you it will make me thirsty all day " informed then when that time comes will give her needed water. Tends to close her door, discouraged from closing , talks loud on the phone, per pt. her mother is BLACKFEET
--- NOTE | 2021-05-24 17:50 | NUR ---
Gps/[employer]- Complained of upset stomach, requesting to drink soda., noted patient kept asking for water to drink. Gets needy, argumentative, yells at the staff when being redirected , or told what to do.
[2021-05-24 20:00] VITALS: BP 145/93
[2021-05-24] MEDS: LORAZEPAM 1 MG TABLET PO PRN (20:03)
[2021-05-24] MEDS: CLOZAPINE 100 MG TABLET PO SCH (20:03)
[2021-05-24] MEDS: TEMAZEPAM 15 MG CAPSULE PO PRN (21:13)
--- NOTE | 2021-05-25 05:12 | NUR ---
Received the patient at the start of the shift , talking to herself in her room. When this medical writer attempted to engage in conversation, the patient was irritable, condescending and acting child like by mimicking this medical writer. Multiple negative statement about her mother were made and the patients mood was labile. This patient had high energy and was difficult to redirect. Clearly delusional thinking and paranoid. The patient was however medication compliant at that time. Safety Stratiges are in place and close monitoring for behavior escalation.
[2021-05-25] MEDS: LEVOTHYROXINE SODIUM 175 MCG TABLET PO SCH (06:08)
--- NOTE | 2021-05-25 07:30 | NUR ---
rec d patient in bed responding to internal stimuli voices telling her her mother wants to kill her, redirected to reality. Pt affect bizarre continues to respond to voices and laies down on her bed. she slept for a feww hours. patient remains [id number] encouraged to change gown and clean to no avail.
[2021-05-25 08:13] VITALS: BP 114/80
[2021-05-25] MEDS: risperiDONE 1 MG TABLET PO SCH ×3 (08:57→17:47)
[2021-05-25] MEDS: CALCIUM CARB/VITAMIN D 600-400 MG TABLET PO SCH (08:57)
[2021-05-25] MEDS: CLOZAPINE 25 MG TABLET PO SCH (09:06)
[2021-05-25 15:39] VITALS: BP 108/68
[2021-05-25 16:05] VITALS: BP 108/68
--- NOTE | 2021-05-25 18:57 | NUR ---
STILLBIZARRE YELLING AND IN APPROPRIATE BEHAVAVIORS WANTING TO EAT AND DRINK MILK, HARD TO REDIRECT. CONTINUE TO MONITOR FOR SAFETY
[2021-05-25 20:10] VITALS: BP 141/94
[2021-05-25] MEDS: LORAZEPAM 1 MG TABLET PO PRN (20:49)
[2021-05-25] MEDS: CLOZAPINE 100 MG TABLET PO SCH (20:51)
[2021-05-25] MEDS: TEMAZEPAM 15 MG CAPSULE PO PRN (20:55)
[2021-05-26] MEDS: LEVOTHYROXINE SODIUM 200 MCG TABLET PO SCH (06:09)
[2021-05-26 07:43] VITALS: BP 102/60
[2021-05-26] MEDS: risperiDONE 1 MG TABLET PO SCH ×2 (08:36→16:56)
[2021-05-26] MEDS: CLOZAPINE 25 MG TABLET PO SCH (08:37)
[2021-05-26] MEDS: CALCIUM CARB/VITAMIN D 600-400 MG TABLET PO SCH (08:37)
--- NOTE | 2021-05-26 15:03 | NUR ---
Received patient sleeping in her room. A/O X 2 to person. Pt. affect is bizarre, labile, suspicious with medications, paranoid that people are not what they seem to be. Patient has trust issues towards staff. Compliant with medications at this time. Ambulatory. Self care. Patient is encourage to vent feelings and emotions. Fall and safety precautions implemented.
[2021-05-26 16:11] VITALS: BP 122/77
[2021-05-26 20:09] VITALS: BP 112/64
[2021-05-26] MEDS: TEMAZEPAM 15 MG CAPSULE PO PRN (20:47)
[2021-05-26] MEDS: CLOZAPINE 100 MG TABLET PO SCH (20:49)
[2021-05-26] MEDS: LORAZEPAM 1 MG TABLET PO PRN (20:49)
--- NOTE | 2021-05-27 02:43 | NUR ---
Received the patient at the start of the shift in her room with door shut. Upon approach, the patient began to rattle off multiple requests for varies food items. In a demanding tone stating " Give me 2 sandwiches, 2 puddings, only ham, 3 orange juices " etc.. When trying to engage in any meaningful conversation or redirect her attention away from food, the patient whispers about about people in the room that are listening , and the patient was having visual and auditory hallucination. When this show card writer would focus on reality based facts, the patient would become argumentative and threaten to not take any medications. Staff continuing to monitor patient for compliance and behavior escalation.
[2021-05-27] MEDS: LEVOTHYROXINE SODIUM 200 MCG TABLET PO SCH (05:30)
[2021-05-27 07:34] VITALS: BP 121/67
[2021-05-27 08:00] LABS: HEMATOCRIT 33.5 % (31.2-41.9); MEAN CORPUSCULAR HEMOGLOBIN 30.5 uug (24.7-32.8); MEAN CORPUSCULAR VOLUME 91.8 fL (75.5-95.3); PLATELET COUNT (AUTO) 412 K/uL (179-408)
[2021-05-27] MEDS: CLOZAPINE 25 MG TABLET PO SCH (08:27)
[2021-05-27] MEDS: CALCIUM CARB/VITAMIN D 600-400 MG TABLET PO SCH (08:27)
[2021-05-27] MEDS: risperiDONE 1 MG TABLET PO SCH (08:27)
--- NOTE | 2021-05-27 15:25 | NUR ---
Received patient sleeping in her room. A/O X 1 to person. Pt. affect is confused, disoriented, demanding, bizarre, isolative. Compliant with medications. Ambulates without assistance. Reality orientation provided. Fall and safety precautions implemented.
[2021-05-27 16:15] VITALS: BP 104/60
[2021-05-27] MEDS ORDERED: risperiDONE 1 MG TABLET PO SCH (17:00)
[2021-05-27] MEDS: risperiDONE 2 MG TABLET PO SCH (17:32)
[2021-05-27 19:56] VITALS: BP 112/71
[2021-05-27] MEDS: CLOZAPINE 100 MG TABLET PO SCH (20:37)
[2021-05-28] MEDS: LEVOTHYROXINE SODIUM 200 MCG TABLET PO SCH (06:53)
[2021-05-28 07:30] VITALS: BP 110/45
[2021-05-28] MEDS: CLOZAPINE 25 MG TABLET PO SCH (08:27)
[2021-05-28] MEDS: risperiDONE 2 MG TABLET PO SCH ×3 (08:28→17:36)
[2021-05-28] MEDS: CALCIUM CARB/VITAMIN D 600-400 MG TABLET PO SCH (08:28)
--- NOTE | 2021-05-28 11:29 | NUR ---
SW Family Contact: SW contacted pt's mother Renetta ([phone]) and informed her about pt's discharge from [facility] on 05/30/21. Renetta was agreeable with the discharge plan and informed the SW that her bee breeder Yesica will provide transportation for the pt on at 3:30pm.
--- NOTE | 2021-05-28 14:48 | NUR ---
Received patient awake in her room. A/O X 2 to person, place. Pt. affect is suspicious, demanding, paranoid about being recorded, isolative, bizarre. Ambulates independently. Self care. Compliant with medications. Reassurance given. Fall and safety precautions implemented.
[2021-05-28 16:00] VITALS: BP 98/49
[2021-05-28 20:00] VITALS: BP 107/84
[2021-05-28] MEDS: CLOZAPINE 100 MG TABLET PO SCH (20:47)
[2021-05-29] MEDS: LEVOTHYROXINE SODIUM 200 MCG TABLET PO SCH (06:50)
[2021-05-29 07:46] VITALS: BP 130/81
[2021-05-29] MEDS: risperiDONE 2 MG TABLET PO SCH ×2 (09:04→17:10)
[2021-05-29] MEDS: CALCIUM CARB/VITAMIN D 600-400 MG TABLET PO SCH (09:05)
[2021-05-29] MEDS: CLOZAPINE 25 MG TABLET PO SCH (09:05)
[2021-05-29 13:20] LABS: HEMATOCRIT 31.7 % (31.2-41.9); MEAN CORPUSCULAR VOLUME 91.6 fL (75.5-95.3); PLATELET COUNT (AUTO) 411 K/uL (179-408)
[2021-05-29 13:38] LABS: BILIRUBIN,TOTAL 0.3 mg/dL (0.2-1.0); CREATININE 0.9 mg/dL (0.6-1.3); MAGNESIUM 1.8 mg/dL (1.8-2.4); POTASSIUM 4.3 mmol/L (3.5-5.1); TOTAL PROTEIN, SERUM 7.4 g/dL (6.4-8.2)
--- NOTE | 2021-05-29 14:55 | NUR ---
Patient sodium level is trending low. On 05/24 she was 133 and today she is 131. patient continue drinking large amount of liquids. she is in no distress. V/S stable. Dr Morris was notified and he said to continue monitor. Will continue monitor
[2021-05-29 16:55] VITALS: BP 106/69
[2021-05-29 20:00] VITALS: BP 106/65
[2021-05-29] MEDS: CLOZAPINE 100 MG TABLET PO SCH (20:39)
[2021-05-29] MEDS: TEMAZEPAM 15 MG CAPSULE PO PRN (22:38)
--- NOTE | 2021-05-30 04:01 | NUR ---
SW Contact Note: Pt's mother Renetta ([phone]) contacted to confirm pickup time for pt at 3:30 on . Pt's mother requested for pt's medications to be sent to [facility] [address] [place] [address]. Renetta expressed her concerns regarding pt stating to her mother she is still hearing voices and wants to ensure the SW and Dr. Sorto are aware.
--- NOTE | 2021-05-30 05:16 | NUR ---
Received patient in her room, attention seeking, poor insight and poor judgement. Patient is med compliant. Patient will remain in a psych facility for further evaluation and treatment.
[2021-05-30] MEDS: LEVOTHYROXINE SODIUM 200 MCG TABLET PO SCH (06:20)
--- NOTE | 2021-05-30 07:30 | NUR ---
RECD IN ROOM SITTING ON BEDSIDE IN NO DISTRESS OR C/O DISCOMFORT , MOOD IS LABILE AND AFFECT GUARDED STILL DISHELVED . ORAL IN TAKE GOOD ASKING FOR WATER CONSTANTLY REINFORCED THAT SHE HAS A LIMIT.NO PEER INTERACTION NOTE4D ISOLATIVE WITH STAFF EXCEPT FOR ASKING FOR WATER. PLANS TO BE DISCHARGED TODAY.
[2021-05-30 07:40] VITALS: BP 126/75
[2021-05-30] MEDS: CALCIUM CARB/VITAMIN D 600-400 MG TABLET PO SCH (09:31)
[2021-05-30] MEDS: risperiDONE 2 MG TABLET PO SCH ×2 (09:32→17:00)
[2021-05-30] MEDS: CLOZAPINE 25 MG TABLET PO SCH (09:32)
--- NOTE | 2021-05-30 13:06 | NUR ---
MICAELA Discharge Note: Pt will be discharged to Home via transportation by her mother Renetta and her animal cruelty investigation supervisor Yesica ([phone]). MICAELA spoke with Renetta and Yesica who state they are ready to accept the patients return home today. Pt is aware and agreeable with discharge plans. Pt is alert and oriented x4, is unable to plan for self-care at this time; however, is returning home under the care of her mother and animal cruelty investigation supervisor. Pt denies any suicidal or homicidal ideation. Pt presents with calm mood and congruent affect.
[2021-05-30 15:00] VITALS: BP_SYST 122; BP_SYST 144; BP_DIAS 51; BP_DIAS 82
--- NOTE | 2021-05-30 16:09 | NUR ---
GPS: PT WILL BE DISCHARGE TODAY AND MOM AND CAREGIVER WILL BE PICKING UP THE PT, ALREADY AT THE LOBBY WAITING FOR PT. ALL BELONGINGS GIVEN TO PT, PT UNABLE TO SIGN. PSYCHIATRIC MEDICATIONS CALLED IN AT [facility]. PT WHEELED TO THE LOBBY ACCOMPANIED BY MOM AND CAREGIVER. DENIES ANY PAIN OR DISCOMFORT.
--- NOTE | 2021-05-30 17:51 | NUR ---
patient was discharged home to MOTHER AND CAREGIVER AT 1730 WITH F/U INSTRUCTIONS AND ALL BELONGINGS IN NO ACUTE DISTRESS, PATIENT REFUSED TO LEAVE WITH A LOT OF THINGS MISSING SHE SAYS NOT THE CASE AFTER SHE SAW HER MOM SHE CHANGED HER MIND, THEN IT WAS CG EVERY THING FELL INTO PLACE AND PATIENT WAS TRANSPORTED TO THE FRONT LOBBY VIA WHEEL CHAIR.[id number] ASSISTED INTO BACK SEAT WITHOUT PROBLEM STILL A LITTLE AGITATED CG HELPED CALM HER DOWN, PATIENT LEFT IN NO ACUTE DISTRESS WITH MOTHER AND CG. MEDICATION CALLED AND FAXED TO PHARMACY/
== END 2021-05-30 11:53 | disposition home or self-care (01) | DRG 885 ==
LOC: ER 20:51 → GPS 05-21 01:00
PROVIDERS: ADMIT Psychiatry & Neurology Psychosomatic Medicine
DX: F25.0 Schizoaffective disorder, bipolar type (principal); K50.90 Crohn's disease, unspecified, without complications; E03.9 Hypothyroidism, unspecified; Z79.890 Hormone replacement therapy; Z20.822 Contact with and (suspected) exposure to COVID-19; F29 Unspecified psychosis not due to a substance or known physiological condition; Z73.6 Limitation of activities due to disability; M81.0 Age-related osteoporosis without current pathological fracture
CPT/HCPCS: 36415; 70030-TC; 71045; 83735; 84443; 84481; 85025; 85730; 93005; A4663; G0480; J2358